=== PATIENT | female | born 1940 | race Caucasian/White ===

== ENCOUNTER 2025-06-27 07:34 | Inpatient (IN) ==
--- NOTE | 2025-06-27 07:46 | Emergency Department Note ---
Impression & Plan Acute cholecystitis, Lactic acidosis, Symptomatic cholelithiasis ED Provider Note NAME: LORENA JENSEN AGE: 85 SEX: F : 1940 ARRIVES VIA: Walk-In INFORMANT: Patient, daughter ED PROVIDER(S): Tobi Jimenez DO CHIEF COMPLAINT: abdominal pain HPI: This is am 85-year-old female with the PMHx of allergies and recent acute cholecystitis and choledocholithiasis presenting to [facility] for further evaluation of abdominal pain. Patient is accompanied by her daughter who provide additional history. The patient is reporting worsening abdominal pain overnight. She has had significant nausea and multiple episodes of emesis. Decreased p.o. intake secondary to her symptoms. Patient is reporting right upper quadrant and epigastric pain. She states this has been an ongoing issue. She originally presented a few weeks ago as she felt she was having a heart attack and was found to have acute cholecystitis. Patient was eventually transferred to [facility] for further evaluation by GI. She did have an ERCP with biliary and pancreatic stenting placed. She did have gallstones removed from the common bile duct. Patient states she is working with general surgery as an outpatient for cholecystectomy but her symptoms continue to worsen. They deny fever or chills. No cough or congestion. Denies chest pain or palpitations. No shortness of breath. No urinary complaints. No recent changes in bowel movements. Patient denies recent changes in medications or OTC supplements. Patient offers no other complaints, today. ADDITIONAL HISTORY OBTAINED: Per HPI Chronic Medical/Social Conditions Affecting Care: Per HPI PAST MEDICAL HISTORY: See Below PAST SURGICAL HISTORY: See Below FAMILY HISTORY: See Below SOCIAL HISTORY: See Below HOME MEDICATIONS: See Below ALLERGIES: See Below VITALS: See Below PHYSICAL EXAMINATION: GENERAL: Sitting up in bed, alert, well appearing, well nourished, no distress, non-toxic EYE EXAM: normal conjunctiva. OROPHARYNX: no exudate, no erythema, lips, buccal mucosa, and tongue normal and mucous membranes are moist NECK: supple, no nuchal rigidity, no adenopathy, non-tender LUNGS: Clear to auscultation. Normal chest wall mechanics HEART: no murmurs, regular rate, regular rhythm ABDOMEN: abdomen soft, RUQ/epigastric TTP, no masses, no rebound or guarding. BACK: Back is symmetrical on inspection and there is no deformity, no midline tenderness, no CVA tenderness. SKIN: no rashes and no bruising UPPER EXTREMITIES: upper extremities are grossly normal. LOWER EXTREMITIES: No pitting edema. NEURO EXAM: Normal sensorium, GCS 15, normal speech, no gross weakness of arms, no gross weakness of legs. MEDICAL DECISION MAKING: Differential diagnoses includes but not limited to symptomatic cholelithiasis, acute cholecystitis, choledocholithiasis, electrolyte derangements, dehydration In summary, this is a 85 year old female who presented with abdominal pain accompanied by nausea and vomiting. Differential as above. Nursing notes and pertinent past medical records reviewed. Vital signs reviewed and the patient is afebrile and hemodynamically stable. History and presentation revealed recent acute cholelithiasis complicated by cholecystitis and choledocholithiasis. External records from [facility] were obtained by [facility]. I reviewed these records including recent ERCP. Patient was found to have choledocholithiasis. Patient had biliary sphincterotomy and balloon extraction of the stone. The patient had multiple stents placed including 1 pancreatic stent and 2 biliary stents. General surgery was consulted for elective cholecystectomy. The patient did see Dr. Ac yesterday. Dr. Ac recommended elective cholecystectomy and schedule was to be made shortly. Lab work from 06/12 was reviewed showing a transaminitis present with elevated total bilirubin at 3.1. Physical examination revealed abdominal tenderness to palpation but no evidence of peritonitis. No evidence of jaundice. As a result of my initial evaluation, we will plan for repeat labs and right upper quadrant ultrasound today. Plan to discuss with general surgery as her symptoms have continued to worsen and there are concerns for acute cholecystitis. Diagnostics interpreted by me include EKG and cardiac monitoring as listed below: -Cardiac Monitoring: An order was placed for continuous cardiac monitoring. The monitor shows a rate of 40-70s with regular rhythm. -ECG: Sinus bradycardia at [address] segment changes to suggest STEMI. There is artifact present on this rhythm strip. Intervals otherwise within normal limits. Patient completed laboratory studies and imaging. Results independently interpreted by me are no significant leukocytosis or anemia. LFTs are normal. No significant electrolyte derangements. Does have an elevated lactate in the setting of decreased p.o. intake and significant vomiting. Patient was provided with medications as well as IV fluid resuscitation. right upper quadrant ultrasound was suggestive of symptomatic cholelithiasis with some evidence of cholecystitis but no Looney sign. General surgery was consulted and they recommended elective cholecystectomy tomorrow. They recommended admission to the medicine team. I discussed with the medicine team and the patient was subsequently admitted. I did give the patient multiple doses of pain medications as she required further dosing on reevaluations. Ultimately, the decision was made to admit the patient for Symptomatic cholelithiasis with concerns for acute cholecystitis. I discussed the case with the hospitalist service via telephone/TigerText and they are agreeable to admit the patient to their services. Based on the above, including the patient's age, coexisting illnesses, labs, imaging, and exam findings the decision to treat as an inpatient. I discussed the patient with the hospitalist team who recommended admission to their services. They received the medications, treatments, interventions indicated above and their condition remained stable. I discussed my findings with the patient and their family and they understand and agree with the treatment plan. All patient / family questions were answered to their satisfaction. Consults/Care Managements Discussions: Per MDM ER treatment provided: See above Procedures: none Critical Care: None The chart was completed utilizing RunAlong Speech voice recognition software. Grammatical errors, random word insertions, pronoun errors, and incomplete sentences are an occasional consequence of this system due to software limitations, ambient noise, and hardware issues. Any formal questions or concerns about the content, text, or information contained within the body of this dictation should be directly addressed to the physician for clarification. Past Med/Surg History Problem List (Updated 06/28/25 @ 11:33 by Tobi Jimenez DO) Symptomatic cholelithiasis (Acute) Lactic acidosis (Acute) Acute cholecystitis (Acute) Medical History Choledocholithiasis Celiac disease Surgical History Hx of tonsillectomy Family History (Updated 06/27/25 @ 14:35 by Kim Mcduffie PA-C) Other Celiac disease Social History (Updated 06/27/25 @ 14:35 by Kim Mcduffie PA-C) Smoking Status: Never smoker Second Hand Exposure: No; Do You Dip or Chew Tobacco: No; Hx Alcohol Use: No Hx Substance Use: No Preferred Language: Hungarian Communication Ability: Effective Retail Experience Specialist Required: No Beliefs That Will Affect Care: None Current Living Situation: Alone Other Information That Helps Us Care for You: No Feels Safe at Home: Yes Safety Concerns: Feels Safe At This Time Assistive Devices: Cane Allergies Allergies Allergy/AdvReac Type Severity Reaction Status Date / Time gluten Allergy Severe CELIAC Verified 06/10/25 17:45 DISEASE latex Allergy Intermediate RED Verified 06/10/25 17:45 IRRITATION OF SKIN wool Allergy Intermediate ITCHY RED Verified 06/10/25 17:45 SKIN SKIN SENSATIVITY Allergy Unknown DETERGENTS, Uncoded 06/10/25 17:45 SOAPS, COSMETICS, ETC. Home Meds Home Medications Medication Instructions Recorded Confirmed calcium carbonate (Calcium 600) 1,200 mg PO DAILY 06/10/25 06/27/25 ketoconazole 2 % shampoo 1 applic topical DIRECTED 06/10/25 06/27/25 loratadine 10 mg tablet (Claritin) 10 mg PO DAILY 06/10/25 06/27/25 gxuuogfgtdus-tehsgfqo-bzumjp 1 tab PO DAILY 06/10/25 06/27/25 tablet (Multivitamin 50 Plus tablet) peppermint oil 90 mg 90 mg PO BID 06/10/25 06/27/25 capsule,delayed,extended release (IBgard) vit C 250 mg-vit E 90 mg-zinc 40 1 tab PO BID 06/10/25 06/27/25 mg-copper 1 uz-viqfwa-xvnnxr capsule (PreserVision AREDS-2) ondansetron HCl 4 mg tablet 4 mg PO UD PRN n/v 06/27/25 06/27/25 Results & Data (ED) Vital Signs Vital Signs - 24 hr 06/27/25 13:22 Pulse Rate [Apical] 97 H Pulse Rhythm [Apical] Regular Pulse Strength [Apical] Normal Respiratory Rate 19 Respiratory Effort / Characteristics Non-Labored Spontaneous Respiratory Depth Normal Respiratory Pattern Regular Blood Pressure [Right Arm] 126/68 Blood Pressure Mean [Right Arm] 87 Blood Pressure Position [Right Arm] Lying Pulse Oximetry 99 Oxygen Delivery Method Room Air Laboratory Data 06/28/25 07:53 06/28/25 07:53 Lab Results 06/27/25 06/27/25 06/27/25 Range/Units 07:55 08:20 12:15 WBC 10.52 (4.8-10.8) K/ul RBC 4.49 (4.20-5.40) M/uL Hgb 14.0 (12.0-16.0) g/dl Hct 42.5 (37.0-47.0) % MCV 94.7 (80.0-100.0) fL MCH 31.2 (25.0-34.0) pg MCHC 32.9 (32.0-36.0) g/dL RDW Std Deviation 52.9 H (36.4-46.3) fL RDW Coeff of Isai 15.2 H (11.5-14.5) % Plt Count 400 (130-400) K/uL MPV 9.2 L (9.4-12.4) fL Immature Gran % (Auto) 0.4 % Neut % (Auto) 86.8 % Lymph % (Auto) 6.6 % [place] % (Auto) 5.5 % Eos % (Auto) 0.0 % Baso % (Auto) 0.7 % Neut # (Auto) 9.14 H (1.40-6.50) K/uL Lymph # (Auto) 0.69 L (1.20-3.40) K/uL [place] # (Auto) 0.58 (0.11-0.59) K/uL Eos # (Auto) 0.00 (0.00-0.50) K/uL Baso # (Auto) 0.07 (0.00-0.20) K/uL Immature Gran # (Auto) 0.04 (0.01-0.20) K/uL PT 10.8 (9.0-12.0) Seconds INR 1.0 (0.9-1.1) Sodium 136 (136-145) mmol/L Potassium 3.6 (3.5-5.1) mmol/L Chloride 98 (98-107) mmol/L Carbon Dioxide 28 (21-32) mmol/L Anion Gap 10 (3-11) BUN 15 (6-23) mg/dl Creatinine 0.68 (0.6-1.2) mg/dl Est Cr Clr Drug Dosing 41.9 ml/min eGFR 84.24 BUN/Creatinine Ratio 22.1 H (10-20) Glucose 140 H (70-99(Fasting)) mg/dl Lactate 2.9 H* 2.7 H* (0.4-2.0) mmol/L Calcium 9.6 (8.6-10.3) mg/dl Total Bilirubin 1.0 (0.2-1.0) mg/dl Direct Bilirubin TNP 0.4 H AST 21 (13-39) U/L ALT 21 (7-52) U/L Alkaline Phosphatase 98 (34-104) U/L Total Protein 7.9 (6.0-8.3) gm/dl Albumin 4.8 (3.4-5.0) gm/dl Lipase 10 L (11-82) U/L Administered Medications Acetaminophen (Acetaminophen 500 Mg Tab) 1,000 mg PO Q8H SINDY Stop: 07/27/25 17:59 Last Admin: 06/28/25 09:38 Dose: Not Given Documented By: Admin: 06/28/25 02:59 Dose: 1,000 mg Documented By: Admin: 06/27/25 18:27 Dose: 1,000 mg Documented By: LISA Sodium Chloride (Nss) 1,000 mls @ 100 mls/hr IV .Q10H SINDY Stop: 06/30/25 14:44 Last Admin: 06/28/25 09:01 Dose: 100 mls/hr Documented By: Infusion: 06/28/25 08:20 Dose: Infused Documented By: Admin: 06/27/25 15:39 Dose: 60 mls/hr Documented By: TDM Piperacillin Sod/Tazobactam Sod (Zosyn) 4.5 gm in 100 mls @ 25 mls/hr IV Q8H SINDY; Protocol Stop: 07/07/25 19:59 Last Infusion: 06/28/25 07:13 Dose: Infused Documented By: Admin: 06/28/25 03:00 Dose: 25 mls/hr Documented By: Infusion: 06/28/25 00:15 Dose: Infused Documented By: MARTÍN(2) Admin: 06/27/25 19:58 Dose: 25 mls/hr Documented By: MARTÍN Discontinued Medications Fentanyl Citrate (Fentanyl Citrate Pf 100 Mcg/2 Ml Vial) 50 mcg IV NOW ONE Stop: 06/27/25 09:59 Last Admin: 06/27/25 10:02 Dose: 50 mcg Documented By: MPJuan Parenteral Electrolytes (Plasma-Lyte A Ph 7.4) 1,000 mls @ 999 mls/hr IV .Q1H1M ONE Stop: 06/27/25 09:03 Last Infusion: 06/27/25 12:27 Dose: Infused Documented By: Admin: 06/27/25 08:08 Dose: 999 mls/hr Documented By: MIKE Acetaminophen 720 mg/ EMPTY (BAG) 72 mls @ 288 mls/hr IV NOW ONE Stop: 06/27/25 09:59 Last Infusion: 06/27/25 11:18 Dose: Infused Documented By: Admin: 06/27/25 10:52 Dose: 288 mls/hr Documented By: MIKE Piperacillin Sod/Tazobactam Sod (Zosyn) 4.5 gm in 100 mls @ 200 mls/hr IV NOW STA; Protocol Stop: 06/27/25 15:38 Last Infusion: 06/27/25 16:18 Dose: Infused Documented By: Admin: 06/27/25 15:39 Dose: 200 mls/hr Documented By: SHANTELL Sodium Chloride (Nss) 500 mls @ 999 mls/hr IV .Q31M ONE Stop: 06/27/25 18:39 Last Infusion: 06/27/25 19:11 Dose: Infused Documented By: Admin: 06/27/25 18:27 Dose: 999 mls/hr Documented By: LISA Morphine Sulfate (Morphine Sulfate 4 Mg/Ml 1 Ml Carp\Vial) 4 mg IV NOW STA Stop: 06/27/25 08:04 Last Admin: 06/27/25 08:08 Dose: 4 mg Documented By: MIKE Ondansetron HCl (Ondansetron Inj 2 Mg/Ml 2 Ml Vial) 4 mg IV NOW STA Stop: 06/27/25 08:04 Last Admin: 06/27/25 08:08 Dose: 4 mg Documented By: MIEK Discharge Plan Visit Data Chief Complaint: Abdominal Pain Stated Complaint: GALLSTONE? ED Provider: Tobi Jimenez Discharge Problem: Acute cholecystitis, Lactic acidosis, Symptomatic cholelithiasis Patient Disposition: Admitted As Inpatient Condition: Fair Discharge Instructions Interventions: ED Discharge Assessment Last Done: 06/27/25 16:13
[2025-06-27] MEDS: ONDANSETRON INJ 2 MG/ML 2 ML VIAL IV STA (08:08)
[2025-06-27] MEDS: PLASMA-LYTE A 1,000 ML IV ONE (08:08)
[2025-06-27] MEDS: MoRPHine SULFATE 4 MG/ML 1 ML CARP\\VIAL IV STA (08:08)
[2025-06-27 08:16] LABS: Hematocrit (blood only) 42.5 % (37.0-47.0); Hemoglobin 14.0 g/dl (12.0-16.0); Immature Granulocytes # (auto) 0.04 K/uL (0.01-0.20); Immature Granulocytes % (auto) 0.4 %; Mean Corpuscular Hemoglobin 31.2 pg (25.0-34.0); Mean Corpuscular Volume 94.7 fL (80.0-100.0); Platelet Count 400 K/uL (130-400); RDW Standard Deviation 52.9 fL (36.4-46.3); Red Blood Count 4.49 M/uL (4.20-5.40); White Blood Count 10.52 K/ul (4.8-10.8)
[2025-06-27 08:35] LABS: Alanine Aminotransferase 21 U/L (7-52); Albumin Level 4.8 gm/dl (3.4-5.0); Alkaline Phosphatase 98 U/L (34-104); Anion Gap 10 (3-11); Bilirubin,Total 1.0 mg/dl (0.2-1.0); Blood Urea Nitrogen 15 mg/dl (6-23); Calcium 9.6 mg/dl (8.6-10.3); Carbon Dioxide 28 mmol/L (21-32); Chloride 98 mmol/L (98-107); Creatinine Clr Calc Pharmacy 41.9 ml/min; Glucose 140 mg/dl (70-99(Fasting)); Lipase 10 U/L (11-82); Potassium 3.6 mmol/L (3.5-5.1); Sodium 136 mmol/L (136-145); Total Protein 7.9 gm/dl (6.0-8.3)
[2025-06-27 08:50] LABS: INR 1.0 (0.9-1.1); Prothrombin Time 10.8 Seconds (9.0-12.0)
[2025-06-27] MEDS: ACETAMINOPHEN IV ONE (10:52)
--- NOTE | 2025-06-27 11:20 | Ultrasound Report ---
US gallbladder CLINICAL HISTORY: Abdominal pain. Evaluate for acute cholecystitis. COMPARISON STUDY: CT of the abdomen and pelvis and right upper quadrant ultrasound June 10 5. FINDINGS: The liver is sonographically normal. There is no biliary ductal dilatation. The common bile duct measures 5 mm in caliber. The gallbladder is moderately distended. Gallbladder wall thickening is again noted. There are multiple gallstones within the gallbladder. No sonographic Looney sign was elicited. The pancreas is partially obscured. Visualized portions are unremarkable by sonography. The re is no right hydronephrosis. IMPRESSION: 1. Cholelithiasis with gallbladder distention and gallbladder wall thickening. The findings favor chr onic cholecystitis given lack of sonographic Looney sign although acute cholecystitis would be diffic ult to completely exclude. If indicated, a nuclear medicine hepatobiliary scan could be obtained. 2. No biliary ductal dilatation. ACT 112: Negative or not required by law. Electronically signed by: Grupo Cazares M.D. 06/27/2025 11:17 AM
--- NOTE | 2025-06-27 13:40 | History & Physical Report ---
Date of Service June 27, 2025 Assessment & Plan (1) Acute cholecystitis: Plan: This is an 85-year-old female with PMH of celiac disease, recent choledocholithiasis and other medical problems listed below who presents from home with abdominal pain. S/p ERCP on 06/12 for choledocholithiasis, s/p biliary stent x 2, pancreatic stent x 1 at [facility] with plans for outpatient gen surg eval for cholecystectomy Returns to ER today with abd pain, N/V -> Gallbladder ultrasound findings consistent with cholelithiasis with GB wall thickening No leukocytosis, tbili and liver enzymes unremarkable Gen surg evaluated patient - planning on lap marty tomorrow morning Full liquids today, NPO @ midnight Maintenance fluids, IV Zosyn, pain control (2) Lactic acidosis: Plan: Lactate 2.9 in setting of acute process above Non-toxic appearance, does not meet sepsis criteria Trend till normalized, continue IV fluids DVT Ppx: SCDs Code status: DNR/DNI PCP: Neyda Dispo: Admitted to med/surg Patient seen in collaboration with Dr. Collins. Please see addendum. I spent a total of 60 minutes coordinating, documenting, and providing care for this patient excluding time spent in the performance of separately billed services or time spent by another provider/QHP. History of Present Illness Chief Complaint: abd pain Primary Care Provider: Dilcia Faye, DO This is an 85-year-old female with PMH of celiac disease, recent choledocholithiasis and other medical problems listed below who presents from home with abdominal pain. Recently presented to [facility] with findings of choledocholithiasis and was transferred to [facility] for ERCP. Underwent ERCP on 06/12/2025 with biliary sphincterotomy and balloon extraction, 1 plastic pancreatic stent and 2 plastic biliary stents placed by Dr. Bay. Had scheduled follow-up with general surgery for evaluation of cholecystectomy in outpatient setting. Was feeling okay until last night when she had a cup of brown rice for dinner and after which she developed severe pain across her abdomen with radiation up to chest. Developed nausea, vomiting x 1 and diaphoresis. Took Tylenol but it did not alleviate pain. No diarrhea; chronic diarrhea at baseline but last bowel movement yesterday. No F/C, lightheadedness, palpitations, SOB, dysuria. Lives alone and ambulates independently. No h/o abdominal surgeries. Allergies Allergy/AdvReac Type Severity Reaction Status Date / Time gluten Allergy Severe CELIAC Verified 06/10/25 17:45 DISEASE latex Allergy Intermediate RED Verified 06/10/25 17:45 IRRITATION OF SKIN wool Allergy Intermediate ITCHY RED Verified 06/10/25 17:45 SKIN SKIN SENSATIVITY Allergy Unknown DETERGENTS, Uncoded 06/10/25 17:45 SOAPS, COSMETICS, ETC. Home Medications Medication Instructions Recorded Confirmed Type calcium carbonate (Calcium 600) 1,200 mg PO DAILY 06/10/25 06/27/25 History ketoconazole 2 % shampoo 1 applic topical DIRECTED 06/10/25 06/27/25 History loratadine 10 mg tablet (Claritin) 10 mg PO DAILY 06/10/25 06/27/25 History kjoweexrlovr-poyhjzsm-cszzql 1 tab PO DAILY 06/10/25 06/27/25 History tablet (Multivitamin 50 Plus tablet) peppermint oil 90 mg 90 mg PO BID 06/10/25 06/27/25 History capsule,delayed,extended release (IBgard) vit C 250 mg-vit E 90 mg-zinc 40 1 tab PO BID 06/10/25 06/27/25 History mg-copper 1 sl-unwlbn-drndhd capsule (PreserVision AREDS-2) ondansetron HCl 4 mg tablet 4 mg PO UD PRN n/v 06/27/25 06/27/25 History Past Med/Surg History Problem List (Updated 06/27/25 @ 14:44 by Kim Mcduffie PA-C) Lactic acidosis Acute cholecystitis Medical History Choledocholithiasis Celiac disease Surgical History Hx of tonsillectomy Family History (Updated 06/27/25 @ 14:35 by Kim Mcduffie PA-C) Other Celiac disease Social History (Updated 06/27/25 @ 14:35 by Kim Mcduffie PA-C) Smoking Status: Never smoker Second Hand Exposure: No; Do You Dip or Chew Tobacco: No; Hx Alcohol Use: No Hx Substance Use: No Preferred Language: Czech Communication Ability: Effective Commodity Lead Required: No Beliefs That Will Affect Care: None Current Living Situation: Alone Other Information That Helps Us Care for You: No Feels Safe at Home: Yes Safety Concerns: Feels Safe At This Time Assistive Devices: Cane and Glasses Review of Systems Review of Systems: At least ten systems reviewed and negative except as noted in the HPI. Physical Exam Physical Exam: Please see Dr. Collins's addendum for physical exam. Results & Data Results & Data Vital Signs (Past 12 Hours) Vital Signs Temp Pulse Pulse Resp BP BP Pulse Ox 06/27/25 13:22 97 H 19 126/68 99 06/27/25 11:00 79 15 149/75 H 93 06/27/25 09:35 48 L 17 167/93 H 96 06/27/25 08:43 45 L 06/27/25 07:55 47 L 19 98 06/27/25 07:55 49 L 15 138/72 98 06/27/25 07:38 36.2 C L 78 18 161/92 H 97 O2 Del Method 06/27/25 13:22 Room Air 06/27/25 11:00 Room Air 06/27/25 09:35 Room Air 06/27/25 08:43 06/27/25 07:55 Room Air 06/27/25 07:55 Room Air 06/27/25 07:38 Room Air Laboratory Results Short CBC 06/27/25 Range/Units 07:55 WBC 10.52 (4.8-10.8) K/ul Hgb 14.0 (12.0-16.0) g/dl Hct 42.5 (37.0-47.0) % Plt Count 400 (130-400) K/uL BMP 06/27/25 07:55 Sodium 136 Potassium 3.6 Chloride 98 Carbon Dioxide 28 BUN 15 Creatinine 0.68 Glucose 140 H Calcium 9.6 Liver Function 06/27/25 06/27/25 Range/Units 07:55 12:15 Total Bilirubin 1.0 (0.2-1.0) mg/dl Direct Bilirubin TNP 0.4 H AST 21 (13-39) U/L ALT 21 (7-52) U/L Alkaline Phosphatase 98 (34-104) U/L Albumin 4.8 (3.4-5.0) gm/dl Diagnostic Findings Gallbladder Ultrasound 06/27/25 07:47 US gallbladder CLINICAL HISTORY: Abdominal pain. Evaluate for acute cholecystitis. COMPARISON STUDY: CT of the abdomen and pelvis and right upper quadrant ultrasound June 10, 2025. FINDINGS: The liver is sonographically normal. There is no biliary ductal dilatation. The common bile duct measures 5 mm in caliber. The gallbladder is moderately distended. Gallbladder wall thickening is again noted. There are multiple gallstones within the gallbladder. No sonographic Looney sign was elicited. The pancreas is partially obscured. Visualized portions are unremarkable by sonography. There is no right hydronephrosis. IMPRESSION: 1. Cholelithiasis with gallbladder distention and gallbladder wall thickening. The findings favor chronic cholecystitis given lack of sonographic Looney sign although acute cholecystitis would be difficult to completely exclude. If indicated, a nuclear medicine hepatobiliary scan could be obtained. 2. No biliary ductal dilatation. ACT 112: Negative or not required by law. Electronically signed by: Grupo Cazares M.D. 06/27/2025 11:17 AM Supervising Physician Co-Signing Physician Notes Patient seen and examined Recently hospitalized at [facility] and had ERCP with biliary stents placed with plan for outpatient surgery cholecystectomy. Presents with worsened abd pain, nausea and vomiting since dinner last night On exam, General: Elderly woman in no distress Eyes: PERRL, conjunctivae normal, not pale, anicteric sclerae, EOM intact bilaterally ENMT: External ear and nose normal, oropharynx normal Respiratory: Normal respiratory effort, no respiratory distress, lungs clear to auscultation Cardiovascular: RRR S1 S2 Gastrointestinal (Abdomen): Abdomen is not distended, soft, non-tender to palpation, normal bowel sounds Musculoskeletal: No pedal edema Neurologic: Alert and oriented x 3, No focal weakness, sensation grossly intact Psychiatric: Euthymic affect Lab notable for lactate of 2.9 GB USS noted cholelithiasis with GB wall thickening Continue IVF Full liquid diet Pain control NPO PMN for lap cholecystectomy by surgeon tomorrow Other plans as detailed by Kim Garner PA-C
--- NOTE | 2025-06-27 13:46 | Surgery Consultation ---
<Statement entered by Jef Nash MD - 06/27/25 23:20> I independently saw the patient and agree with the assessment and plan of care. Patient was reassessed after abdominal x-ray and x-ray reports feeling much better and denies any significant pain. Area of inguinal hernia also feels softer and is not tender on exam now. Will observe the patient closely and if continues to improve, will consider likely elective repair. If patient worsens, may need urgent emergency repair. Date of Consultation June 27, 2025 Assessment & Plan (1) Acute cholecystitis: This is an 85y F who presents to the [facility] ED on 06/27/25 with complaints of abdominal pain. She has history of choledocholithiasis s/p ERCP with stents at [facility] earlier this month. She was in the midst of getting scheduled for elective lap marty as an outpatient unfortunately she has been having low grade persistent symptoms since the ERCP and a severe gallbladder attack that occurred last night into this AM. She presented to our ER for further evaluation. Today in the ER she underwent a repeat RUQ US that showed cholelithiasis with gallbladder distention and gallbladder wall thickening. The findings favor chronic cholecystitis. There is no biliary ductal dilation. In the ER blood work shows WBC 10, Hbg 14, Tb 1, AST 21, ALT 21, Alkp 98. Her vital signs are stable. On exam patients abdomen is soft with lower abdominal distention and mild tenderness to palpation in the right mid/upper abdominal regions. Agree at this point patient warrants gallbladder removal. We will have her get admitted to the hospital for symptom control, start IV abx, and plan on surgery tomorrow with Dr. Nash for cholecystectomy. Keep NPO at midnight. History of Present Illness History of Present Illness This is an 85y F who presents to the [facility] ED on 06/27/25 with complaints of abdominal pain. Of significance she presented to our ER on 06/10 with similar symptoms and was diagnosed with acute cholecystitis and choledocholithiasis. Since we did not have GI coverage for ERCP she was transferred to [facility] where she underwent ERCP with removal of choledocholithiasis and placement of CBD and pancreatic duct stents. Patient was discharged to home the following day with plans for elective outpatient cholecystectomy. The patient states she was getting by at home but taking intermittent tylenol and zofran for her symptoms. She met with [facility] surgeon yesterday in the office with plans to schedule elective procedure. Unfortunately the patient developed severe abdominal pain around 7:15 yesterday evening, associated with nausea/vomiting that was not going away. She called [facility] outpatient this AM and was asked to come into the ER for evaluation. The patient rates her pain a 6-7/10 in severity. Today in the ER she underwent a repeat RUQ US that showed c with gallbladder distention and gallbladder wall thickening. The findings favor chronic cholecystitis. There is no biliary ductal dilation. The patient reports she last ate some brown rice around 7pm and the pain started right after eating. This time tylenol did not help her symptoms. Patient denies any fevers/chills. She reports some + SOB. + constipation she used a suppository for recently. She denies any past surgical history on the abdomen. Allergies Allergy/AdvReac Type Severity Reaction Status Date / Time gluten Allergy Severe CELIAC Verified 06/10/25 17:45 DISEASE latex Allergy Intermediate RED Verified 06/10/25 17:45 IRRITATION OF SKIN wool Allergy Intermediate ITCHY RED Verified 06/10/25 17:45 SKIN SKIN SENSATIVITY Allergy Unknown DETERGENTS, Uncoded 06/10/25 17:45 SOAPS, COSMETICS, ETC. Home Medications Medication Instructions Recorded Confirmed Type calcium carbonate (Calcium 600) 1,200 mg PO DAILY 06/10/25 06/27/25 History ketoconazole 2 % shampoo 1 applic topical DIRECTED 06/10/25 06/27/25 History loratadine 10 mg tablet (Claritin) 10 mg PO DAILY 06/10/25 06/27/25 History qztnuqvzphvk-dtqnjvws-djpaay 1 tab PO DAILY 06/10/25 06/27/25 History tablet (Multivitamin 50 Plus tablet) peppermint oil 90 mg 90 mg PO BID 06/10/25 06/27/25 History capsule,delayed,extended release (IBgard) vit C 250 mg-vit E 90 mg-zinc 40 1 tab PO BID 06/10/25 06/27/25 History mg-copper 1 gt-nyiniq-vpdrty capsule (PreserVision AREDS-2) ondansetron HCl 4 mg tablet 4 mg PO UD PRN n/v 06/27/25 06/27/25 History Patient History Social History Smoking Status: Never smoker Preferred Language: [place] Feels Safe at Home: Yes Review of Systems Constitutional: no fever and no chills Respiratory: + dyspnea Gastrointestinal: + abdominal pain, + bloating, + nausea, + vomiting and + constipation Musculoskeletal: no back pain Physical Exam Physical Exam: awake/alert, no distress Constitutional: well developed and well nourished; no acute distress Respiratory: normal respiratory effort Gastrointestinal (Abdomen): Inspection/Auscultation: + abdomen distended (lower abdominal distention) Percussion/Palpation: + abdomen tender (some mild discomfort to deep palpation in the mid to upper right sided abd) and abdomen soft Results & Data Vital Signs (Past 12 Hours) Vital Signs Temp Pulse Pulse Resp BP BP Pulse Ox 06/27/25 13:22 97 H 19 126/68 99 06/27/25 11:00 79 15 149/75 H 93 06/27/25 09:35 48 L 17 167/93 H 96 06/27/25 08:43 45 L 06/27/25 07:55 47 L 19 98 06/27/25 07:55 49 L 15 138/72 98 06/27/25 07:38 97.2 F L 78 18 161/92 H 97 O2 Del Method 06/27/25 13:22 Room Air 06/27/25 11:00 Room Air 06/27/25 09:35 Room Air 06/27/25 08:43 06/27/25 07:55 Room Air 06/27/25 07:55 Room Air 06/27/25 07:38 Room Air Diagnostic Findings US gallbladder CLINICAL HISTORY: Abdominal pain. Evaluate for acute cholecystitis. COMPARISON STUDY: CT of the abdomen and pelvis and right upper quadrant ultrasound June 10, 2025. FINDINGS: The liver is sonographically normal. There is no biliary ductal dilatation. The common bile duct measures 5 mm in caliber. The gallbladder is moderately distended. Gallbladder wall thickening is again noted. There are multiple gallstones within the gallbladder. No sonographic Looney sign was elicited. The pancreas is partially obscured. Visualized portions are unremarkable by sonography. There is no right hydronephrosis. IMPRESSION: 1. Cholelithiasis with gallbladder distention and gallbladder wall thickening. The findings favor chronic cholecystitis given lack of sonographic Looney sign although acute cholecystitis would be difficult to completely exclude. If indicated, a nuclear medicine hepatobiliary scan could be obtained. 2. No biliary ductal dilatation. ACT 112: Negative or not required by law. Electronically signed by: Grupo Cazares M.D. 06/27/2025 11:17 AM PG Care Time/CCT Total # of Minutes Spent Total Time Spent with Patient: Total time spent is greater than 50% in coordination of care (as documented) at patient's floor/unit and/or counseling patient: Coding Level of Care Code 16924 INT INP/OBS CARE 1/40MIN Diagnoses Acute cholecystitis K81.0
[2025-06-27] MEDS ORDERED: MoRPHine SULFATE 2 MG/ML CARP IV PRN (14:21)
[2025-06-27] MEDS ORDERED: ACETAMINOPHEN 500 MG TAB PO PRN (15:36)
[2025-06-27] MEDS: SODIUM CHLORIDE 0.9% 1,000 ML IV SCH (15:39)
[2025-06-27] MEDS: 4.5GM X1 IV STA (15:39)
[2025-06-27] MEDS ORDERED: ONDANSETRON INJ 2 MG/ML 2 ML VIAL IV PRN (16:59)
[2025-06-27 17:59] LABS: Appearance Urine Clear (Clear); Bacteria Urine Automated None Seen (None Seen); Cast Urine Automated 0-2 /lpf (0-2); Epithelial Cell Urine Auto 0-2 /hpf (0-2); Glucose Urine UA Negative (Negative); WBC Urine Automated 0-5 /hpf (0-5)
--- NOTE | 2025-06-27 18:19 | Electrocardiogram Report ---
Test Reason : Blood Pressure : */* mmHG Vent. Rate : 57 BPM Atrial Rate : 57 BPM P-R Int : 166 ms QRS Dur : 94 ms QT Int : 446 ms P-R-T Axes : 69 -63 85 degrees QTcB Int : 434 ms Sinus bradycardia Possible Left atrial enlargement Incomplete right bundle branch block Left anterior fascicular block Nonspecific T wave abnormality Abnormal ECG When compared with ECG of 10-Jun-2025 15:36, Incomplete right bundle branch block is now Present Confirmed by Blas Chavez ([id number]) on 06/27/2025 6:19:30 PM Referred By: REFERRED SELF Confirmed By: Blas Chavez
[2025-06-27] MEDS: SODIUM CHLORIDE 0.9% 500 ML IV ONE (18:27)
[2025-06-27] MEDS: ACETAMINOPHEN 500 MG TAB PO SCH (18:27)
[2025-06-27] MEDS: PIPERACILLIN/TAZOBACTAM 4.5 GM/100 ML BAG IV SCH (19:58)
[2025-06-28 08:31] LABS: Hematocrit (blood only) 34.1 % (37.0-47.0); Hemoglobin 11.2 g/dl (12.0-16.0); Mean Corpuscular Hemoglobin 30.9 pg (25.0-34.0); Mean Corpuscular Volume 93.9 fL (80.0-100.0); Platelet Count 246 K/uL (130-400); RDW Standard Deviation 53.6 fL (36.4-46.3); Red Blood Count 3.63 M/uL (4.20-5.40); White Blood Count 14.20 K/ul (4.8-10.8)
[2025-06-28 09:00] LABS: Alanine Aminotransferase 31.0 U/L (7-52); Albumin Globulin Ratio 1.5 (0.9-2); Albumin Level 3.1 gm/dl (3.4-5.0); Alkaline Phosphatase 71.0 U/L (34-104); Anion Gap 6.0 (3-11); Bilirubin,Total 1.2 mg/dl (0.2-1.0); Blood Urea Nitrogen 18.0 mg/dl (6-23); Calcium 7.9 mg/dl (8.6-10.3); Carbon Dioxide 28.0 mmol/L (21-32); Chloride 103.0 mmol/L (98-107); Creatinine Clr Calc Pharmacy 36.5 ml/min; Globulin 2.1 gm/dl (2.5-4.0); Glucose 90.0 mg/dl (70-99(Fasting)); Potassium 3.4 mmol/L (3.5-5.1); Sodium 137.0 mmol/L (136-145); Total Protein 5.2 gm/dl (6.0-8.3)
--- NOTE | 2025-06-28 11:10 | Surgery Progress Note ---
Date of Service June 28, 2025 Assessment & Plan (1) Acute cholecystitis: (2) Choledocholithiasis: Plan This is a very pleasant 85-year-old female with a history of choledocholithiasis, status post ERCP and sphincterotomy and stent placement recently who came back in with abdominal pain and was found to have possible cholecystitis but her intrahepatic ducts were dilated on CAT scan. Her bilirubin has remained slightly elevated, given this, will obtain MRCP to ensure that the stent is in good positioning with good output and no blockage and that there are no retained stones prior to cholecystectomy during this admission. If there are concerning findings on MRCP, patient may need further ductal manipulation prior to any type of surgical intervention. Admission and Anticipated Discharge Date Admission Date: June 27, 2025 Subjective Patient denies any abdominal pain this morning. Appears comfortable Review of Systems Review of Systems: All systems reviewed & are unremarkable except as noted in HPI & below Physical Exam Constitutional: WD/WN, vitals as above Eyes: PERRL, conjunctivae normal, anicteric sclerae Cardiovascular: Rate/Rhythm: regular rate Gastrointestinal (Abdomen): Abdomen soft and nondistended Results & Data Vital Signs (Past 12 Hours) Vital Signs Temp Pulse Resp BP Pulse Ox O2 Del Method 06/28/25 07:35 37.0 C 74 16 93/52 L 95 Room Air Laboratory Results Labs reviewed, notable for increased white blood cell count as well as slight increase in bilirubin PG Care Time/CCT Total # of Minutes Spent Total Time Spent with Patient: Total time spent is greater than 50% in coordination of care (as documented) at patient's floor/unit and/or counseling patient: Coding Level of Care Code 10184 SUB INP/OBS CARE 2/35MIN Diagnoses Acute cholecystitis K81.0 Choledocholithiasis K80.50
[2025-06-28] MEDS: POTASSIUM CHLORIDE 20 MEQ/15 ML UDC PO ONE (14:12)
--- NOTE | 2025-06-28 14:58 | Magnetic Resonance Report ---
MR MRCP HISTORY: 85 years-old Female elevated bilirubin, history of ERCP and stent COMPARISON: CT abdomen and pelvis 06/10/2025 TECHNIQUE: MRCP was obtained without IV contrast FINDINGS: Levoscoliosis of the thoracolumbar junction. Trace pleural effusions with mild bibasilar atelectasis. Cardiomegaly with small pericardial effusion. Unremarkable spleen and visualized adrenal glands. Bilateral perinephric stranding without hydronephr osis. Unremarkable aorta. Aortic lymph nodes measure up to 10 mm. No definite bowel stroke shown smal l bowel wall thickening. Small volume of ascites. Liver is within normal limits. Distended gallbladder measures up to approximately 17 cm and demonstrates wall thickening with perich olecystic fluid and numerous intraluminal gallstones including a 2.2 cm stone within the gallbladder neck. The common bile duct measures 5 mm transversely. Previously noted choledocholithiasis not defin itively seen on this study. 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 No pancr eatic ductal dilation identified. IMPRESSION: 1. Cholelithiasis with findings suggestive of cholecystitis redemonstrated. 2. The study is motion degraded and the previously noted choledocholithiasis are not definitively see n on this motion degraded study. No biliary ductal dilation. 3. Small pleural and pericardial effusions with body wall edema and ascites. 4. 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 ACT 112: Negative or not required by law. The above report was generated using voice recognition software. It may contain grammatical, syntax o r spelling errors. Electronically signed by: Mark Lizarraga M.D. 06/28/2025 2:57 PM
--- NOTE | 2025-06-28 15:11 | Hospitalist Progress Note ---
Date of Service June 28, 2025 Assessment & Plan (1) Acute cholecystitis: Plan: Patient is an 85-year-old female with PMH of celiac disease, recent choledocholithiasis and other medical problems listed below who presents from home with abdominal pain. 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 The study is motion degraded and the previously noted choledocholithiasis are not definitively seen on this motion degraded study. No biliary ductal dilation. Small pleural and pericardial effusions with body wall edema and ascites. 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 --Gall Bladder USD:Cholelithiasis with gallbladder distention and gallbladder wall thickening. The findings favor chronic cholecystitis given lack of sonographic Looney sign although acute cholecystitis would be difficult to completely exclude. If indicated, a nuclear medicine hepatobiliary scan could be obtained. No biliary ductal dilatation. --S/p ERCP on 06/12 for choledocholithiasis, s/p biliary stent x 2, pancreatic stent x 1 at [facility] with plans for outpatient gen surg eval for cholecystectomy --Continue gentle IV fluids, Zosyn Appreciate surgery input Pain control as needed Clear liquid diet today N.p.o. after midnight for surgery tomorrow Hypokalemia Replace and monitor (2) Lactic acidosis: Plan: Lactic acidosis resolved with IV fluids DVT Px: SCDs for now Code status: DNR/DNI Admission and Anticipated Discharge Date Admission Date: June 27, 2025 Subjective Patient is seen and examined at bedside Denies any chest pain, dyspnea, nausea, vomiting, abdominal pain Discussed with surgery today Offers no specific complaints today Review of Systems Review of Systems: All systems reviewed & are unremarkable except as noted in Subjective Physical Exam Physical Exam: Physical Exam: Vitals signs as noted above General Appearance: Thin, frail, elderly, no apparent distress Head: normocephalic, Atraumatic Eyes: normal inspection, EOMI Neck: supple, Trachea midline Respiratory/Chest: Normal breath sounds, CTA, No accessory muscle use Cardiovascular: S1, S2, No murmur Abdomen/GI:Soft, Non tender, Bowel sounds present Extremities/Musculoskeletal:normal inspection, no edema Neurologic/Psych:AAOX3, grossly no focal neurological deficits Skin: normal color, warm Results & Data Results & Data Vital Signs (Past 12 Hours) Vital Signs Temp Pulse Resp BP Pulse Ox O2 Del Method 06/28/25 07:35 37.0 C 74 16 93/52 L 95 Room Air Laboratory Results Short CBC 06/28/25 Range/Units 07:53 WBC 14.20 H (4.8-10.8) K/ul Hgb 11.2 L (12.0-16.0) g/dl Hct 34.1 L (37.0-47.0) % Plt Count 246 (130-400) K/uL BMP 06/28/25 07:53 Sodium 137 Potassium 3.4 L Chloride 103 Carbon Dioxide 28 BUN 18 Creatinine 0.78 Glucose 90 Calcium 7.9 L Liver Function 06/28/25 Range/Units 07:53 Total Bilirubin 1.2 H (0.2-1.0) mg/dl Direct Bilirubin 0.3 H (0-0.2) mg/dl AST 29 (13-39) U/L ALT 31 (7-52) U/L Alkaline Phosphatase 71 (34-104) U/L Albumin 3.1 L (3.4-5.0) gm/dl Urine 06/27/25 Range/Units Unknown Urine Color Yellow Urine Appearance Clear (Clear) Urine pH 6.5 (4.5-7.5) Ur Specific [place] 1.025 (1.000-1.030) Urine Protein 1+ H (Negative) Urine Glucose (UA) Negative (Negative)
[2025-06-28] MEDS: SODIUM CHLORIDE 0.9% 500 ML IV ONE (16:54)
[2025-06-29] MEDS ORDERED: Nursing to Pharmacy Communication SCH (01:30)
[2025-06-29 08:44] LABS: Hematocrit (blood only) 34.9 % (37.0-47.0); Hemoglobin 11.8 g/dl (12.0-16.0); Mean Corpuscular Hemoglobin 31.7 pg (25.0-34.0); Mean Corpuscular Volume 93.8 fL (80.0-100.0); Platelet Count 189 K/uL (130-400); RDW Standard Deviation 54.0 fL (36.4-46.3); Red Blood Count 3.72 M/uL (4.20-5.40); White Blood Count 13.70 K/ul (4.8-10.8)
[2025-06-29 09:02] LABS: Alanine Aminotransferase 24.0 U/L (7-52); Albumin Globulin Ratio 1.3 (0.9-2); Albumin Level 2.8 gm/dl (3.4-5.0); Alkaline Phosphatase 85.0 U/L (34-104); Anion Gap 6.0 (3-11); Bilirubin,Total 0.9 mg/dl (0.2-1.0); Blood Urea Nitrogen 16.0 mg/dl (6-23); Calcium 7.9 mg/dl (8.6-10.3); Carbon Dioxide 24.0 mmol/L (21-32); Chloride 108.0 mmol/L (98-107); Creatinine Clr Calc Pharmacy 38.0 ml/min; Globulin 2.2 gm/dl (2.5-4.0); Glucose 84.0 mg/dl (70-99(Fasting)); Magnesium 1.9 mg/dl (1.7-2.4); Potassium 3.4 mmol/L (3.5-5.1); Sodium 138.0 mmol/L (136-145); Total Protein 5.0 gm/dl (6.0-8.3)
--- NOTE | 2025-06-29 09:24 | Hospitalist Progress Note ---
Date of Service June 29, 2025 Assessment & Plan (1) Acute cholecystitis: Plan: Patient is an 85-year-old female with PMH of celiac disease, recent choledocholithiasis and other medical problems listed below who presents from home with abdominal pain. 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 The study is motion degraded and the previously noted choledocholithiasis are not definitively seen on this motion degraded study. No biliary ductal dilation. Small pleural and pericardial effusions with body wall edema and ascites. 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 --Gall Bladder USD:Cholelithiasis with gallbladder distention and gallbladder wall thickening. The findings favor chronic cholecystitis given lack of sonographic Looney sign although acute cholecystitis would be difficult to completely exclude. If indicated, a nuclear medicine hepatobiliary scan could be obtained. No biliary ductal dilatation. --S/p ERCP on 06/12 for choledocholithiasis, s/p biliary stent x 2, pancreatic stent x 1 at [facility] with plans for outpatient gen surg eval for cholecystectomy --S/P laparoscopic cholecystectomy on 06/29/[address]Asna Nash --Continue gentle IV fluids, Zosyn Appreciate surgery input Pain control as needed Clear liquid diet today Monitor for postop anemia Hypokalemia Replace and monitor (2) Lactic acidosis: Plan: Lactic acidosis resolved with IV fluids DVT Px: SCDs for now Code status: DNR/DNI Admission and Anticipated Discharge Date Admission Date: June 27, 2025 Subjective Patient is seen and examined at bedside States having some abdominal discomfort with activity but otherwise no other complaints Plan for cholecystectomy Discussed with surgery today Review of Systems Review of Systems: All systems reviewed & are unremarkable except as noted in Subjective Physical Exam Physical Exam: Physical Exam: Vitals signs as noted above General Appearance: Thin, frail, elderly, no apparent distress Head: normocephalic, Atraumatic Eyes: normal inspection, EOMI Neck: supple, Trachea midline Respiratory/Chest: Normal breath sounds, CTA, No accessory muscle use Cardiovascular: S1, S2, No murmur Abdomen/GI:Soft, Non tender, Bowel sounds present Extremities/Musculoskeletal:normal inspection, no edema Neurologic/Psych:AAOX3, grossly no focal neurological deficits Skin: normal color, warm Results & Data Results & Data Vital Signs (Past 12 Hours) Vital Signs Temp Pulse Resp BP Pulse Ox O2 Del Method 06/29/25 08:41 Room Air 06/29/25 08:32 36.5 C 60 18 132/61 94 Room Air 06/28/25 22:06 36.6 C 74 16 94/60 L 94 Room Air Laboratory Results Short CBC 06/29/25 Range/Units 08:21 WBC 13.70 H (4.8-10.8) K/ul Hgb 11.8 L (12.0-16.0) g/dl Hct 34.9 L (37.0-47.0) % Plt Count 189 (130-400) K/uL BMP 06/29/25 08:21 Sodium 138 Potassium 3.4 L Chloride 108 H Carbon Dioxide 24 BUN 16 Creatinine 0.75 Glucose 84 Calcium 7.9 L Liver Function 06/29/25 Range/Units 08:21 Total Bilirubin 0.9 (0.2-1.0) mg/dl AST 24 (13-39) U/L ALT 24 (7-52) U/L Alkaline Phosphatase 85 (34-104) U/L Albumin 2.8 L (3.4-5.0) gm/dl
[2025-06-29] MEDS: POTASSIUM CHLORIDE / WTR 10 MEQ/100 ML PLCT IV SCH (09:34)
[2025-06-29] MEDS ORDERED: PROPOFOL IV EMULSION 10 MG/ML 20 ML VIAL IV ONE (09:52)
[2025-06-29] MEDS ORDERED: ROCURONIUM BROMIDE 10 MG/ML 5 ML VIAL IV ONE (09:52)
[2025-06-29] MEDS ORDERED: DEXAMETHASONE SOD INJ 4 MG/ML VIAL ONE (09:54)
[2025-06-29] MEDS ORDERED: ONDANSETRON INJ 2 MG/ML 2 ML VIAL ONE (09:55)
[2025-06-29] MEDS: LACTATED RINGER'S 1,000 ML IV SCH ×2 (11:33→17:19)
[2025-06-29] MEDS ORDERED: ONDANSETRON INJ 2 MG/ML 2 ML VIAL IV PRN (11:37)
[2025-06-29] MEDS ORDERED: ATROPINE SULFATE 0.1 MG/ML 10ML SYR IV PRN (11:37)
--- NOTE | 2025-06-29 11:40 | Anesthesiology Consultation ---
Date of Service June 29, 2025 Assessment & Plan Chart Review Chart Review: Acceptable Risk for Surgery Consults Requested none ASA ASA2 Proposed Anesthesia Anesthesia Type: General Risk / Benefits Reviewed With: PT / POA / Parent / Guardian, Accepts Plan and Informed Consent Obtained History Surgery Operation Date: 06/29/25 11:35 Proposed Procedures p Laparoscopic Cholecystectomy - Jef Nash MD Height/Weight Height: 5 ft Weight: 48.4 kg Allergies Allergy/AdvReac Type Severity Reaction Status Date / Time gluten Allergy Severe CELIAC Verified 06/29/25 11:13 DISEASE latex Allergy Intermediate RED Verified 06/29/25 11:13 IRRITATION OF SKIN wool Allergy Intermediate ITCHY RED Verified 06/29/25 11:13 SKIN lactose AdvReac Intermediate abd pain, Verified 06/29/25 11:14 bloating, diarrhea or constipation SKIN SENSATIVITY Allergy Unknown DETERGENTS, Uncoded 06/29/25 11:13 SOAPS, COSMETICS, ETC. Medications Home Medications Medication Instructions Recorded Confirmed Last Taken calcium carbonate (Calcium 600) 1,200 mg PO DAILY 06/10/25 06/27/25 06/10/25 ketoconazole 2 % shampoo 1 applic topical DIRECTED 06/10/25 06/27/25 Unknown loratadine 10 mg tablet (Claritin) 10 mg PO DAILY 06/10/25 06/27/25 06/10/25 cdjykozukynx-dcletqyr-ipyfnm 1 tab PO DAILY 06/10/25 06/27/25 06/10/25 tablet (Multivitamin 50 Plus tablet) peppermint oil 90 mg 90 mg PO BID 06/10/25 06/27/25 06/10/25 08:00 capsule,delayed,extended release (IBgard) vit C 250 mg-vit E 90 mg-zinc 40 1 tab PO BID 06/10/25 06/27/25 06/10/25 08:00 mg-copper 1 my-ftcrbz-ufberl capsule (PreserVision AREDS-2) ondansetron HCl 4 mg tablet 4 mg PO UD PRN n/v 06/27/25 06/27/25 Unknown Active Medications Generic Name Dose Route Start Last Admin Trade Name Freq PRN Reason Stop Dose Admin Acetaminophen 1,000 mg 06/27/25 18:00 06/29/25 08:40 Acetaminophen 500 Mg Tab PO 07/27/25 17:59 Not Given Q8H SINDY Sodium Chloride 1,000 mls @ 75 mls/hr 06/27/25 14:45 06/29/25 09:06 Nss IV 06/29/25 18:00 75 mls/hr .[id number] SINDY Infusion Piperacillin Sod/Tazobactam Sod 4.5 gm in 100 mls @ 25 mls/hr 06/27/25 20:00 06/29/25 08:37 Zosyn IV 07/07/25 19:59 Infused Q8H SINDY Infusion Protocol Potassium Chloride 10 meq in 100 mls @ 100 mls/hr 06/29/25 09:30 06/29/25 11:34 K Jesus / Wtr IV 06/29/25 12:29 100 mls/hr Q1H SINDY Administration Lactated Ringer's 1,000 mls @ 15 mls/hr 06/29/25 11:30 06/29/25 11:33 Lr IV 07/02/25 11:29 15 mls/hr .Q24H SINDY Administration NPO Date Last Intake of Fluids: 06/28/25 Time Last Intake of Fluids: 20:00 Date Last Intake of Solids: 06/26/25 Time Last Intake of Solids: 19:00 Past Medical History Medical History Choledocholithiasis Celiac disease Exercise / Class Metabolic Activity III < 4 Walking/Shop/Light housework Past Family History Family History Other Celiac disease Past Surgical History Surgical History Hx of tonsillectomy Past Anesthesia History No Hx of Anesthesia Complications and No Family Hx of Anesthesia Complications History of PONV No Hx of PONV and No Hx of Motion Sickness Social History Smoking Status: Never smoker Do You Dip or Chew Tobacco: No Hx Alcohol Use: No Hx Substance Use: No Review of Systems ROS Unobtainable: All systems reviewed & are unremarkable except as noted in HPI & below Constitutional: as per Subjective / HPI Respiratory: no problem reported Cardiovascular: no chest pain, no chest pain with activity, no dyspnea at rest and no problem reported Gastrointestinal: no nausea Neurologic: as per Subjective / HPI; no numbness and no paresthesia Physical Exam Vital Signs Last Vital Signs Temp 36.8 C 06/29/25 11:19 Pulse 97 H 06/29/25 11:19 Resp 57 H 06/29/25 11:19 BP 143/87 H 06/29/25 11:19 Pulse Ox 97 06/29/25 11:19 O2 Del Method Room Air 06/29/25 11:19 Constitutional no acute distress ENMT Mouth: no TMJ abnormality Thyromental Distance: < 3.5 Finger Breadths Mallampati Class: I Neck normal visual inspection Respiratory normal respiratory effort Auscultation: lungs clear to auscultation bilaterally Cardiovascular Rate/Rhythm: regular rate and regular rhythm Chest (Breasts) Chest: no pacemaker Musculoskeletal Spine: normal cervical ROM Neurologic moves all extremities Psychiatric Orientation: alert and oriented x 3 Testing Laboratory Results 06/29/25 08:21 06/29/25 08:21 PT 10.8 Seconds (9.0-12.0) 06/27/25 07:55 INR 1.0 (0.9-1.1) 06/27/25 07:55 Urine Color Yellow 06/27/25 Unknown Urine Appearance Clear (Clear) 06/27/25 Unknown Urine pH 6.5 (4.5-7.5) 06/27/25 Unknown Ur Specific [place] 1.025 (1.000-1.030) 06/27/25 Unknown Urine Protein 1+ (Negative) H 06/27/25 Unknown Urine Glucose (UA) Negative (Negative) 06/27/25 Unknown Urine Ketones 2+ (Negative) H 06/27/25 Unknown Urine Nitrite Negative (Negative) 06/27/25 Unknown Ur Leukocyte Esterase Negative (Negative) 06/27/25 Unknown Urine WBC (Auto) 0-5 /hpf (0-5) 06/27/25 Unknown Urine RBC (Auto) 3-5 /hpf (0-2) H 06/27/25 Unknown U Hyaline Cast (Auto) 0-2 /lpf (0-2) 06/27/25 Unknown U Epithel Cells (Auto) 0-2 /hpf (0-2) 06/27/25 Unknown Urine Bacteria (Auto) None Seen (None Seen) 06/27/25 Unknown
--- NOTE | 2025-06-29 11:43 | History & Physical Bridge Note ---
Date of Service June 29, 2025 History & Physical Bridge Note I have examined the patient, reviewed the History & Physical and in the interval since the performance of the History & Physical I have noted the following changes of clinical significance: no changes noted
[2025-06-29] MEDS ORDERED: HYDROmorphone INJ 2 MG/ML SYR/VIAL ONE (12:38)
[2025-06-29] MEDS: SURGICEL ABSORB HEMOSTAT 2IN X 14IN TOP ONE (12:44)
[2025-06-29] MEDS ORDERED: SUGAMMADEX SODIUM 200 MG/2 ML VIAL IV ONE (12:45)
[2025-06-29] MEDS: THROMBIN FOR SOLN 20000 UNIT KIT ONE (14:04)
[2025-06-29] MEDS: GELATIN SPONGE SZ 100 ONE (14:04)
[2025-06-29] MEDS: FLOSEAL HEMOSTATIC MATRIX 10ML TOP ONE (14:19)
[2025-06-29] MEDS: BUPIVACAINE/EPINEPHRINE 0.5% MPF 1:200,000 30 ML VIAL ONE (14:25)
--- NOTE | 2025-06-29 14:28 | Post Operative Brief Note ---
PG Immediate Post Op with CF Date of Surgery June 29, 2025 Pre & Post Diagnosis Operation Date: 06/29/25 11:35 Pre-Op Diagnosis: CHOLECYSTITIS Post-Op Diagnosis: CHOLECYSTITIS I identified the patient and participated in the time-out.: Yes Procedure Operation Date: 06/29/25 11:35 Actual Procedures p Laparoscopic Cholecystectomy(Not Applicable) - Jef Nash MD Surgeon Jef Nash MD Fountain Manager Chelsi Marie PA-C Estimated Blood Loss 200 Findings Consistent with Post-Op Diagnosis severely inflamed and thickened gallbladder with areas of necrosis and somewhat distorted anatomy with oozing from liver bed Specimens Specimen Description: permanent specimen: A) Gallbladder Drains Graham Drain (19fr) Complications none
--- NOTE | 2025-06-29 15:46 | Anesthesiology Progress Note ---
Date of Service June 29, 2025 Anesthesia Post Procedure Vital Signs Vital Signs: Temp Pulse Pulse Resp BP BP Pulse Ox 06/29/25 15:40 88 13 109/61 97 06/29/25 15:30 89 13 111/76 97 06/29/25 15:20 90 12 123/70 96 06/29/25 15:10 92 H 13 121/66 95 06/29/25 15:00 90 14 123/69 95 06/29/25 14:50 90 17 127/98 95 06/29/25 14:44 36.5 C 89 12 144/73 H 93 06/29/25 11:19 36.8 C 97 H 57 H 143/87 H 97 06/29/25 08:41 06/29/25 08:32 36.5 C 60 18 132/61 94 06/28/25 22:06 36.6 C 74 16 94/60 L 94 06/28/25 17:38 94 H 109/71 06/28/25 17:34 98/62 L 06/28/25 16:44 37.1 C 94 H 18 90/53 L 95 O2 Del Method O2 Flow Rate 06/29/25 15:40 Nasal Cannula 2 06/29/25 15:30 Nasal Cannula 2 06/29/25 15:20 Nasal Cannula 2 06/29/25 15:10 Oxymask 5 06/29/25 15:00 Oxymask 5 06/29/25 14:50 Oxymask 10 06/29/25 14:44 Oxymask 10 06/29/25 11:19 Room Air 06/29/25 08:41 Room Air 06/29/25 08:32 Room Air 06/28/25 22:06 Room Air 06/28/25 17:38 06/28/25 17:34 06/28/25 16:44 Room Air Pain Intensity Bilateral Lower Abdomen: Pain Intensity: 1 Right Abdomen: Pain Intensity: 6 Transfer of Care Handoff Completed per policy Notes Mental Status: alert / awake / arousable Patient Amnestic to Procedure: Yes Nausea / Vomiting: adequately controlled Pain: adequately controlled Airway Patency, RR, SpO2: stable & adequate BP & HR: stable & adequate Hydration State: stable & adequate Anesthetic Complications: no major complications apparent
[2025-06-29 15:52] LABS: Hematocrit (blood only) 36.8 % (37.0-47.0); Hemoglobin 11.6 g/dl (12.0-16.0); Mean Corpuscular Hemoglobin 31.0 pg (25.0-34.0); Mean Corpuscular Volume 98.4 fL (80.0-100.0); Platelet Count 216 K/uL (130-400); RDW Standard Deviation 57.9 fL (36.4-46.3); Red Blood Count 3.74 M/uL (4.20-5.40); White Blood Count 9.61 K/ul (4.8-10.8)
--- NOTE | 2025-06-29 15:55 | Operative Report ---
PG Post Operative Report Pre & Post Diagnosis Operation Date: 06/29/25 11:35 Pre-Op Diagnosis: CHOLECYSTITIS Post-Op Diagnosis: CHOLECYSTITIS I identified the patient and participated in the time-out.: Yes Procedure Operation Date: 06/29/25 11:35 Actual Procedures p Laparoscopic Cholecystectomy(Not Applicable) - Jef Nash MD Surgeon Jef Nash MD Interpreter Deaf Chelsi Marie PA-C Estimated Blood Loss 200 Findings Consistent with Post-Op Diagnosis Severely inflamed and thickened and enlarged gallbladder with stones and purulent fluid and areas of necrosis Specimens Gallbladder with stones Drains 19 Indonesian Graham drain in right upper quadrant Complications None Indications This is an 85-year-old female with a history of symptomatic gallstones as well as choledocholithiasis. She has undergone ERCP with sphincterotomy and stent placement and has had recurrent attacks of cholecystitis and now presents for laparoscopic cholecystectomy, possible open cholecystectomy. Risks of procedure were discussed with the patient and they include bleeding, infection, injury to surrounding structures, need for further procedures, ductal injury, cystic duct stump leak, wound issues to include wound dehiscence, infection, and hernia, and cardiopulmonary events that can occur. Alternatives include no surgery, which the patient declines. Patient wishes to proceed with surgery. All questions were answered. Description of Procedure Informed consent was verified and site of surgery was verified and the patient was brought back to the operating room. General anesthesia was administered. She was in the supine position. Her abdomen was prepped and draped in the usual sterile fashion. A surgical timeout was performed and there were no issues. Next, a left upper quadrant incision was made and a Veress needle was inserted and the abdomen was insufflated to about 15 mmHg. Next, a 30 degree laparoscope was inserted with a 5 mm trocar under direct vision using the Optiview technique and the abdomen was inspected. There was no evidence of any injuries to any structures from anterior to the abdominal cavity. 3 additional 5 mm ports were placed and secured, 1 was below the umbilicus and 2 were in the right upper quadrant. The gallbladder and liver bed were examined, there was green murky and purulent fluid around the gallbladder. It was seen to be extremely enlarged and thickened. It was gently grasped and on grasping it, it did start to drain at some areas of necrosis at its level of fundus and mid gallbladder. Dissection was carried out and laterally along the liver bed as dissection was carried out, there was some areas of oozing at the liver bed. This was controlled with Surgicel as well as pressure and cautery. The cystic duct and c ystic artery were circumferentially dissected but the anatomy actually appeared to be somewhat distorted with a very shortened cystic duct with inflammation. Due to this, decision was made to transect the gallbladder at a safer zone right where the infundibulum can be seen and a window was created there and the laparoscopic KEITH stapler was used to transect the gallbladder at this level. Critical view of safety was obtained with this being the gallbladder and the liver bed behind it and no other structures in between them. The cystic artery was circumferentially dissected and transected after placing hemoclips. The gallbladder was gently dissected off the liver bed using a combination of Bovie electrocautery and the LigaSure device. There was general oozing along the liver bed. The gallbladder was very large and the patient's body habitus made visualization very difficult. There is a large amount of purulence that also was evacuated as the gallbladder was dissected off the liver bed and there were areas of necrosis of the gallbladder. Next, the gallbladder was placed in Endo Catch bag and secured in the liver bed was suctioned and irrigated after upsizing the left upper quadrant port to make it a 12 mm port. Surgicel was placed overlying the liver bed where there was an area of oozing and pressure was applied and hemostatic foam was also placed. There was no evidence of any active bleeding. Suction and irrigation was performed and a 19 Indonesian Graham drain was placed and secured under the liver bed coming out via the right upper quadrant port. The left upper quadrant incision had to be upsized more in order to accommodate removing the gallbladder. The fascia of this port was closed with 0 looped PDS and the skin of this and the other ports were closed with 4 M onocryl after placing local anesthesia. Sterile dressing was applied and the patient was weaned off anesthesia and transferred to recovery in stable condition. She tolerated the procedure well. I attest to the content of the Intraoperative Record and any orders documented therein. Any exceptions are noted below.
--- NOTE | 2025-06-29 16:33 | Procedure Note ---
Procedure Note Date of Service June 29, 2025 Note This is an 85-year-old female who recently underwent laparoscopic cholecystectomy. In the recovery room she has not been able to void. Bladder scan has demonstrated at least 800 mL of urine and nursing staff was unsuccessful with attempts at CIC. Urology was called for assistance. At the bedside, she denies any history of surgery on the bladder or vagina. She denies ever having seen a urologist in the past. She denies any prior issues with emptying her bladder. A Middleton catheter was placed in the following fashion: The patient was prepped and draped in the usual sterile fashion. There was some redundant tissue of the labia majora which made exposure somewhat challenging and she also had some mild vaginal stenosis. Initially it appeared that I could see the urethral meatus, and I attempted to advance a 16 [place] silicone catheter, however there was no immediate return of urine. After discussion with the patient, I then was able to use digital pressure on the anterior vaginal wall and advanced the catheter into the urethral meatus essentially by feel. This advanced smoothly with immediate return of clear yellow urine. The catheter balloon was inflated with 10 mL of sterile water and the catheter was attached to gravity drainage. Patient tolerated the procedure well with no immediate complications. Would agree with continuing antibiotics as she is on Zosyn. With no history of prior urinary retention, would be reasonable to perform voiding trial on 06/30/2025 once she is farther out from anesthesia. Ideally this would be done first thing in the morning. [place] [id number] for difficult catheter placement. Coding
[2025-06-29] MEDS ORDERED: MoRPHine SULFATE 4 MG/ML 1 ML CARP\\VIAL IV PRN (16:57)
[2025-06-29] MEDS: MoRPHine SULFATE 2 MG/ML CARP IV PRN (17:16)
[2025-06-29] MEDS: INDOCYANINE GREEN 25 MG VIAL INJ ONE (18:07)
[2025-06-30] MEDS: POLYETHYLENE (MIRALAX) 17 GM PACK PO PRN (06:26)
[2025-06-30] MEDS: DOCUSATE SODIUM/SENNA 50/8.6MG TAB PO SCH (06:36)
[2025-06-30 07:55] LABS: Hematocrit (blood only) 28.1 % (37.0-47.0); Hemoglobin 9.1 g/dl (12.0-16.0); Mean Corpuscular Hemoglobin 30.8 pg (25.0-34.0); Mean Corpuscular Volume 95.3 fL (80.0-100.0); Platelet Count 191 K/uL (130-400); RDW Standard Deviation 54.9 fL (36.4-46.3); Red Blood Count 2.95 M/uL (4.20-5.40); White Blood Count 8.83 K/ul (4.8-10.8)
[2025-06-30 08:24] LABS: Alanine Aminotransferase 22.0 U/L (7-52); Albumin Globulin Ratio 1.1 (0.9-2); Albumin Level 2.3 gm/dl (3.4-5.0); Alkaline Phosphatase 66.0 U/L (34-104); Anion Gap 6.0 (3-11); Bilirubin,Total 0.8 mg/dl (0.2-1.0); Blood Urea Nitrogen 14.0 mg/dl (6-23); Calcium 7.5 mg/dl (8.6-10.3); Carbon Dioxide 23.0 mmol/L (21-32); Chloride 105.0 mmol/L (98-107); Creatinine Clr Calc Pharmacy 45.2 ml/min; Globulin 2.0 gm/dl (2.5-4.0); Glucose 157.0 mg/dl (70-99(Fasting)); Potassium 3.8 mmol/L (3.5-5.1); Sodium 134.0 mmol/L (136-145); Total Protein 4.3 gm/dl (6.0-8.3)
--- NOTE | 2025-06-30 10:13 | Surgery Progress Note ---
Date of Service June 30, 2025 Assessment & Plan (1) Acute cholecystitis: Plan: Patient is POD#1 s/p laparoscopic cholecystectomy with Dr. Nash -Patient doing well this morning, pain controlled, and tolerating clear liquids -Will plan to advance diet today and see how she does -ESMER drain to remain in place for now, can potentially remove at time of discharge if over the weekend. -Continue IV antibiotics for now, and recommend a total of 5 days of oral Augm entin at time of discharge -Medical management per primary team, surgery will continue to follow Admission and Anticipated Discharge Date Admission Date: June 27, 2025 Subjective Patient seen and evaluated this morning, states she is feeling well post- operatively Tolerating clear liquids without any issues of N/V Pain well controlled WBC 8.8, afebrile, on IV antibiotics. Hgb slightly downtrended from 11.6 to 9.1 however she is not tachycardic or hypotensive and no overt signs of bleeding Physical Exam Constitutional: WD/WN, vitals as above Respiratory: normal respiratory effort, lungs clear to auscultation Cardiovascular: RRR, no murmur, no edema Gastrointestinal (Abdomen): Abdomen soft, nondistended, appropriate TTP over surgical sites. Incisions with Dermabond in place, d/c/i without any signs of infection ESMER drain in place with sanguinous output Skin: no rashes, warm and dry Results & Data Vital Signs (Past 12 Hours) Vital Signs Temp Pulse Resp BP Pulse Ox O2 Del Method 06/30/25 06:57 36.6 C 71 16 110/65 96 Room Air 06/30/25 02:54 36.7 C 73 16 118/71 98 Room Air 06/29/25 22:54 36.8 C 75 16 110/65 92 Room Air PG Care Time/CCT Total # of Minutes Spent Total Time Spent with Patient: Total time spent is greater than 50% in coordination of care (as documented) at patient's floor/unit and/or counseling patient: [place] [address] Post Operative Follow-Up Patient Type New History Problem Focused Exam Problem Focused Medical Decision Making Straight Forward Diagnoses Acute cholecystitis K81.0
--- NOTE | 2025-06-30 14:44 | Hospitalist Progress Note ---
Date of Service June 30, 2025 Assessment & Plan (1) Acute cholecystitis: Plan: Patient is an 85-year-old female with PMH of celiac disease, recent choledocholithiasis and other medical problems listed below who presents from home with abdominal pain. 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 The study is motion degraded and the previously noted choledocholithiasis are not definitively seen on this motion degraded study. No biliary ductal dilation. Small pleural and pericardial effusions with body wall edema and ascites. 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 --Gall Bladder USD:Cholelithiasis with gallbladder distention and gallbladder wall thickening. The findings favor chronic cholecystitis given lack of sonographic Looney sign although acute cholecystitis would be difficult to completely exclude. If indicated, a nuclear medicine hepatobiliary scan could be obtained. No biliary ductal dilatation. --S/p ERCP on 06/12 for choledocholithiasis, s/p biliary stent x 2, pancreatic stent x 1 at [facility] with plans for outpatient gen surg eval for cholecystectomy --S/P laparoscopic cholecystectomy on 06/29/[address]Asna Nash -- Received IV fluids -- Continue IV Zosyn Appreciate surgery input Pain control as needed Monitor CBC Advance diet as tolerated Needs follow-up with surgery on discharge PT OT prior to discharge Urinary retention Continue Middleton catheter for now Voiding trial prior to discharge May need urology evaluation on discharge Hypokalemia Replace and monitor (2) Lactic acidosis: Plan: Lactic acidosis resolved with IV fluids DVT Px: SCDs Code status: DNR/DNI Admission and Anticipated Discharge Date Admission Date: June 27, 2025 Subjective Patient is seen and examined at bedside Patient admits to have some discomfort at surgical site Tolerating liquid diet Denies any nausea, vomiting, chest pain, dyspnea Review of Systems Review of Systems: All systems reviewed & are unremarkable except as noted in Subjective Physical Exam Physical Exam: Physical Exam: Vitals signs as noted above General Appearance: Thin, frail, elderly, no apparent distress Head: normocephalic, Atraumatic Eyes: normal inspection, EOMI Neck: supple, Trachea midline Respiratory/Chest: Normal breath sounds, CTA, No accessory muscle use Cardiovascular: S1, S2, No murmur Abdomen/GI:Soft, laparoscopic surgical scars, mild tender, drain, Bowel sounds present Extremities/Musculoskeletal:normal inspection, no edema Neurologic/Psych:AAOX3, grossly no focal neurological deficits Skin: normal color, warm Results & Data Results & Data Vital Signs (Past 12 Hours) Vital Signs Temp Pulse Resp BP Pulse Ox O2 Del Method 06/30/25 06:57 36.6 C 71 16 110/65 96 Room Air 06/30/25 02:54 36.7 C 73 16 118/71 98 Room Air Laboratory Results Short CBC 06/29/25 06/30/25 Range/Units 15:27 07:27 WBC 9.61 8.83 (4.8-10.8) K/ul Hgb 11.6 L 9.1 L (12.0-16.0) g/dl Hct 36.8 L 28.1 L (37.0-47.0) % Plt Count 216 191 (130-400) K/uL BMP 06/30/25 07:27 Sodium 134 L Potassium 3.8 Chloride 105 Carbon Dioxide 23 BUN 14 Creatinine 0.63 Glucose 157 H Calcium 7.5 L Liver Function 06/30/25 Range/Units 07:27 Total Bilirubin 0.8 (0.2-1.0) mg/dl AST 20 (13-39) U/L ALT 22 (7-52) U/L Alkaline Phosphatase 66 (34-104) U/L Albumin 2.3 L (3.4-5.0) gm/dl
[2025-07-01 08:33] LABS: Hematocrit (blood only) 27.4 % (37.0-47.0); Hemoglobin 8.9 g/dl (12.0-16.0); Mean Corpuscular Hemoglobin 30.4 pg (25.0-34.0); Mean Corpuscular Volume 93.5 fL (80.0-100.0); Platelet Count 199 K/uL (130-400); RDW Standard Deviation 52.2 fL (36.4-46.3); Red Blood Count 2.93 M/uL (4.20-5.40); White Blood Count 8.38 K/ul (4.8-10.8)
[2025-07-01 09:12] LABS: Anion Gap 5.0 (3-11); Calcium 7.8 mg/dl (8.6-10.3); Carbon Dioxide 25.0 mmol/L (21-32); Chloride 108.0 mmol/L (98-107); Potassium 3.5 mmol/L (3.5-5.1); Sodium 138.0 mmol/L (136-145)
[2025-07-01 09:17] LABS: Blood Urea Nitrogen 16.0 mg/dl (6-23); Creatinine Clr Calc Pharmacy 34.7 ml/min; Glucose 101.0 mg/dl (70-99(Fasting))
--- NOTE | 2025-07-01 09:58 | Surgery Progress Note ---
Date of Service July 01, 2025 Assessment & Plan (1) Acute cholecystitis: Plan POD [address] Nash. Afebrile, no leukocytosis. Pt had diarrhea. D/C Middleton catheter today. DTV 8 hours after, straight cath if pt does not void Continue diet as ordered Ambulate Continue ESMER drain. Continue to measure and record outputs. 30mL reported for o/n Dr. Nash recommends continue oral abx course after discharge for total of 5 days Will follow up tomorrow Admission and Anticipated Discharge Date Admission Date: June 27, 2025 Subjective I have seen and examined this patient this am. She denies N/V. States she is tolerating her diet well. Admits to occasional low level post surgical pain expected. Is concerned about excessive loose stooling of which she was incontinent in bed yesterday. Physical Exam Constitutional: not ill appearing, not in distress and not diaphoretic Respiratory: normal respiratory effort; no respiratory distress, no labored breathing and does not use accessory muscles Gastrointestinal (Abdomen): Abdomen is soft ESMER drain in place serosanguinous drainage Laparoscopic incisions intact without evidence for infection Middleton catheter in place Results & Data Vital Signs (Past 12 Hours) Vital Signs Temp Pulse Resp BP BP Pulse Ox O2 Del Method 07/01/25 07:27 36.7 C 86 16 121/76 95 Room Air 06/30/25 23:10 36.8 C 77 16 123/72 95 Room Air PG Care Time/CCT Total # of Minutes Spent Total Time Spent with Patient: Total time spent is greater than 50% in coordination of care (as documented) at patient's floor/unit and/or counseling patient: Coding Level of Care Code 55614 Post Operative Follow-Up Diagnoses Acute cholecystitis K81.0
--- NOTE | 2025-07-01 12:41 | Hospitalist Progress Note ---
Date of Service July 01, 2025 Assessment & Plan (1) Acute cholecystitis: Plan: Patient is an 85-year-old female with PMH of celiac disease, recent choledocholithiasis and other medical problems listed below who presents from home with abdominal pain. 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 The study is motion degraded and the previously noted choledocholithiasis are not definitively seen on this motion degraded study. No biliary ductal dilation. Small pleural and pericardial effusions with body wall edema and ascites. 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 --Gall Bladder USD:Cholelithiasis with gallbladder distention and gallbladder wall thickening. The findings favor chronic cholecystitis given lack of sonographic Looney sign although acute cholecystitis would be difficult to completely exclude. If indicated, a nuclear medicine hepatobiliary scan could be obtained. No biliary ductal dilatation. --S/p ERCP on 06/12 for choledocholithiasis, s/p biliary stent x 2, pancreatic stent x 1 at [facility] with plans for outpatient gen surg eval for cholecystectomy --S/P laparoscopic cholecystectomy on 06/29/[address]Asna Nash -- Received IV fluids -- Continue IV Zosyn Appreciate surgery input Pain control as needed Monitor CBC Tolerating regular diet Needs follow-up with surgery on discharge Plan to transition to oral antibiotics to complete the course as recommended by surgery Urinary retention Middleton catheter discontinued Voiding trial today Bladder scan as needed May need urology evaluation on discharge Hypokalemia Replace and monitor (2) Lactic acidosis: Plan: Lactic acidosis resolved with IV fluids DVT Px: SCDs Code status: DNR/DNI Admission and Anticipated Discharge Date Admission Date: June 27, 2025 Subjective Patient is seen and examined at bedside Abdominal pain better today Tolerating current diet No new complaints Plan for voiding trial today Denies any nausea, vomiting, chest pain, dyspnea Review of Systems Review of Systems: All systems reviewed & are unremarkable except as noted in Subjective Physical Exam Physical Exam: Physical Exam: Vitals signs as noted above General Appearance: Thin, frail, elderly, no apparent distress Head: normocephalic, Atraumatic Eyes: normal inspection, EOMI Neck: supple, Trachea midline Respiratory/Chest: Normal breath sounds, CTA, No accessory muscle use Cardiovascular: S1, S2, No murmur Abdomen/GI:Soft, laparoscopic surgical scars, non tender, drain, Bowel sounds present Extremities/Musculoskeletal:normal inspection, no edema Neurologic/Psych:AAOX3, grossly no focal neurological deficits Skin: normal color, warm Results & Data Results & Data Vital Signs (Past 12 Hours) Vital Signs Temp Pulse Resp BP Pulse Ox O2 Del Method 07/01/25 07:27 36.7 C 86 16 121/76 95 Room Air
[2025-07-02 06:27] LABS: Hematocrit (blood only) 24.1 % (37.0-47.0); Hemoglobin 8.3 g/dl (12.0-16.0)
[2025-07-02 07:17] LABS: Anion Gap 5.0 (3-11); Blood Urea Nitrogen 12.0 mg/dl (6-23); Calcium 7.7 mg/dl (8.6-10.3); Carbon Dioxide 28.0 mmol/L (21-32); Chloride 107.0 mmol/L (98-107); Creatinine Clr Calc Pharmacy 37.5 ml/min; Glucose 93.0 mg/dl (70-99(Fasting)); Potassium 3.4 mmol/L (3.5-5.1); Sodium 140.0 mmol/L (136-145)
[2025-07-02] MEDS: POTASSIUM CHLORIDE CRTAB 20 MEQ TABCR PO ONE (10:21)
--- NOTE | 2025-07-02 10:51 | Surgery Progress Note ---
<Statement entered by Reinier Arredondo DO - 07/02/25 11:28> I have seen and examined this patient with the surgical PA. I agree with this plan Date of Service July 02, 2025 Assessment & Plan (1) Symptomatic cholelithiasis: Plan: POD [address] Nash Hbg 8.3 (8.9). Vitals are stable pain in right upper abdomen, continues w/ ESMER drain in place for now, is serosang in nature tolerating a diet, + bowel functions abx course after discharge for total of 5 days. on zosyn in house encourage ambulation, pulmonary toilet pt lives alone, asking to stay until tomorrow if possible, will have some support from daughter (2) Acute cholecystitis: Admission and Anticipated Discharge Date Admission Date: June 27, 2025 Subjective Patient reports some pain with inspiration under her R rib cage. Otherwise pain tolerable with tylenol. on a diet, no n/v. diarrhea slowing and having some normal BM. she is voiding Physical Exam Physical Exam: awake, alert, no distress Gastrointestinal (Abdomen): Inspection/Auscultation: + abdomen distended (some lower abdominal distention noted) and + abdominal surgical incision P ercussion/Palpation: + abdomen tender (expected post op discomfort) and abdomen soft ESMER drain serosang, 60cc noted Results & Data Vital Signs (Past 12 Hours) Vital Signs Temp Pulse Resp BP BP Pulse Ox O2 Del Method 07/02/25 09:56 Room Air 07/02/25 07:05 98.1 F 68 14 130/91 95 Room Air 07/01/25 23:22 98.1 F 81 16 134/72 95 Room Air PG Care Time/CCT Total # of Minutes Spent Total Time Spent with Patient: Total time spent is greater than 50% in coordination of care (as documented) at patient's floor/unit and/or counseling patient: Coding Level of Care Code 86214 Post Operative Follow-Up Diagnoses Symptomatic cholelithiasis K80.20 Acute cholecystitis K81.0
--- NOTE | 2025-07-02 11:43 | Hospitalist Progress Note ---
Date of Service July 02, 2025 Assessment & Plan (1) Acute cholecystitis: Plan: Patient is an 85-year-old female with PMH of celiac disease, recent choledocholithiasis and other medical problems listed below who presents from home with abdominal pain. 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 The study is motion degraded and the previously noted choledocholithiasis are not definitively seen on this motion degraded study. No biliary ductal dilation. Small pleural and pericardial effusions with body wall edema and ascites. 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 --Gall Bladder USD:Cholelithiasis with gallbladder distention and gallbladder wall thickening. The findings favor chronic cholecystitis given lack of sonographic Looney sign although acute cholecystitis would be difficult to completely exclude. If indicated, a nuclear medicine hepatobiliary scan could be obtained. No biliary ductal dilatation. --S/p ERCP on 06/12 for choledocholithiasis, s/p biliary stent x 2, pancreatic stent x [address] [facility] with plans for outpatient gen surg eval for cholecystectomy --S/P laparoscopic cholecystectomy on 06/29/[address]Asna Nash -- Received IV fluids -- Continue IV Zosyn>> plan to transition to oral antibiotics to complete the course Appreciate surgery input Pain control as needed Monitor CBC Tolerating regular diet Needs follow-up with surgery on discharge Likely discharge home tomorrow Urinary retention-- Middleton catheter discontinued Bladder scan as needed Monitor Hypokalemia Replace and monitor (2) Lactic acidosis: Plan: Lactic acidosis resolved with IV fluids DVT Px: SCDs Code status: DNR/DNI Admission and Anticipated Discharge Date Admission Date: June 27, 2025 Subjective Patient is seen and examined at bedside States having some pleuritic pain with deep inspiration Abdominal pain continues to improve Tolerating current diet Discussed with surgery today Voiding with no issues after Middleton discontinued Denies any nausea, vomiting, chest pain, dyspnea Review of Systems Review of Systems: All systems reviewed & are unremarkable except as noted in Subjective Physical Exam Physical Exam: Physical Exam: Vitals signs as noted above General Appearance: Thin, frail, elderly, no apparent distress Head: normocephalic, Atraumatic Eyes: normal inspection, EOMI Neck: supple, Trachea midline Respiratory/Chest: Normal breath sounds, CTA, No accessory muscle use Cardiovascular: S1, S2, No murmur Abdomen/GI:Soft, laparoscopic surgical scars, non tender, drain, Bowel sounds present Extremities/Musculoskeletal:normal inspection, no edema Neurologic/Psych:AAOX3, grossly no focal neurological deficits Skin: normal color, warm Results & Data Results & Data Vital Signs (Past 12 Hours) Vital Signs Temp Pulse Resp BP Pulse Ox O2 Del Method 07/02/25 09:56 Room Air 07/02/25 07:05 36.7 C 68 14 130/91 95 Room Air Laboratory Results Short CBC 07/02/25 Range/Units 06:10 Hgb 8.3 L (12.0-16.0) g/dl Hct 24.1 L (37.0-47.0) % BMP 07/02/25 06:10 Sodium 140 Potassium 3.4 L Chloride 107 Carbon Dioxide 28 BUN 12 Creatinine 0.76 Glucose 93 Calcium 7.7 L
[2025-07-03 07:29] VITALS: BP 131/72; PULSE 61; RESP 16; TEMP 98.2; O2SAT 96
[2025-07-03 07:42] LABS: Hematocrit (blood only) 26.0 % (37.0-47.0); Hemoglobin 8.7 g/dl (12.0-16.0); Mean Corpuscular Hemoglobin 31.3 pg (25.0-34.0); Mean Corpuscular Volume 93.5 fL (80.0-100.0); Platelet Count 289 K/uL (130-400); RDW Standard Deviation 51.4 fL (36.4-46.3); Red Blood Count 2.78 M/uL (4.20-5.40); White Blood Count 7.70 K/ul (4.8-10.8)
[2025-07-03] MEDS: INFLUENZA VACC TS2025-26(65y+)/PF (IIV3) 0.5mL Syr IM ONE (07:46)
[2025-07-03 08:02] LABS: Anion Gap 5.0 (3-11); Blood Urea Nitrogen 8.0 mg/dl (6-23); Calcium 8.1 mg/dl (8.6-10.3); Carbon Dioxide 28.0 mmol/L (21-32); Chloride 107.0 mmol/L (98-107); Creatinine Clr Calc Pharmacy 41.3 ml/min; Glucose 93.0 mg/dl (70-99(Fasting)); Magnesium 1.9 mg/dl (1.7-2.4); Potassium 3.7 mmol/L (3.5-5.1); Sodium 140.0 mmol/L (136-145)
--- NOTE | 2025-07-03 09:10 | Surgery Progress Note ---
Date of Service July 03, 2025 Assessment & Plan (1) Acute cholecystitis: Plan: Status post laparoscopic cholecystectomy for severe acute cholecystitis with areas of ischemia of the gallbladder. Patient is doing well. Recommend ESMER drain can be removed, stable from surgery standpoint to be discharged to home. Admission and Anticipated Discharge Date Admission Date: June 27, 2025 Subjective Patient without complaints, tolerating oral intake well, ambulating. Review of Systems Review of Systems: All systems reviewed & are unremarkable except as noted in HPI & below Physical Exam Constitutional: WD/WN, vitals as above Respiratory: Normal respiratory effort Cardiovascular: Rate/Rhythm: regular rate Gastrointestinal (Abdomen): Abdomen is soft and nondistended, ESMER drain with serosanguineous fluid Results & Data Vital Signs (Past 12 Hours) Vital Signs Temp Pulse Resp BP BP Pulse Ox O2 Del Method 07/03/25 07:29 36.8 C 61 16 131/72 96 Room Air 07/02/25 23:21 36.9 C 79 18 129/75 98 Room Air PG Care Time/CCT Total # of Minutes Spent Total Time Spent with Patient: Total time spent is greater than 50% in coordination of care (as documented) at patient's floor/unit and/or counseling patient: Coding Level of Care Code 54275 Post Operative Follow-Up Diagnoses Acute cholecystitis K81.0
--- NOTE | 2025-07-03 10:52 | Hospitalist Progress Note ---
Date of Service July 03, 2025 Assessment & Plan (1) Acute cholecystitis: Plan: Patient is an 85-year-old female with PMH of celiac disease, recent choledocholithiasis and other medical problems listed below who presents from home with abdominal pain. 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 The study is motion degraded and the previously noted choledocholithiasis are not definitively seen on this motion degraded study. No biliary ductal dilation. Small pleural and pericardial effusions with body wall edema and ascites. 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 --Gall Bladder USD:Cholelithiasis with gallbladder distention and gallbladder wall thickening. The findings favor chronic cholecystitis given lack of sonographic Looney sign although acute cholecystitis would be difficult to completely exclude. If indicated, a nuclear medicine hepatobiliary scan could be obtained. No biliary ductal dilatation. --S/p ERCP on 06/12 for choledocholithiasis, s/p biliary stent x 2, pancreatic stent x 1 at [facility] with plans for outpatient gen surg eval for cholecystectomy --S/P laparoscopic cholecystectomy on 06/29/[address]Asna Nash -- Received IV fluids -- Continue IV Zosyn>> plan to transition to oral antibiotics to complete the course as recommended by surgery Appreciate surgery input Pain control as needed Monitor CBC Tolerating regular diet Plan to discharge home today Urinary retention--resolved Middleton catheter discontinued Bladder scan as needed Monitor Hypokalemia Replace and monitor (2) Lactic acidosis: Plan: Lactic acidosis resolved with IV fluids DVT Px: SCDs Code status: DNR/DNI Admission and Anticipated Discharge Date Admission Date: June 27, 2025 Subjective Patient is seen and examined at bedside States feeling a lot better today Denies any significant abdominal pain Tolerating current diet Denies any chest pain, dyspnea, nausea, vomiting, dizziness Abdominal pain discontinued today Plan to be discharged home today Review of Systems Review of Systems: All systems reviewed & are unremarkable except as noted in Subjective Physical Exam Physical Exam: Physical Exam: Vitals signs as noted above General Appearance: Thin, frail, elderly, no apparent distress Head: normocephalic, Atraumatic Eyes: normal inspection, EOMI Neck: supple, Trachea midline Respiratory/Chest: Normal breath sounds, CTA, No accessory muscle use Cardiovascular: S1, S2, No murmur Abdomen/GI:Soft, laparoscopic surgical scars, non tender, Bowel sounds present Extremities/Musculoskeletal:normal inspection, no edema Neurologic/Psych:AAOX3, grossly no focal neurological deficits Skin: normal color, warm Results & Data Results & Data Vital Signs (Past 12 Hours) Vital Signs Temp Pulse Resp BP BP Pulse Ox O2 Del Method 07/03/25 07:29 36.8 C 61 16 131/72 96 Room Air 07/02/25 23:21 36.9 C 79 18 129/75 98 Room Air Laboratory Results Short CBC 07/03/25 Range/Units 06:57 WBC 7.70 (4.8-10.8) K/ul Hgb 8.7 L (12.0-16.0) g/dl Hct 26.0 L (37.0-47.0) % Plt Count 289 (130-400) K/uL BMP 07/03/25 06:57 Sodium 140 Potassium 3.7 Chloride 107 Carbon Dioxide 28 BUN 8 Creatinine 0.69 Glucose 93 Calcium 8.1 L
--- NOTE | 2025-07-03 11:10 | Discharge Summary ---
Date of Service July 03, 2025 Admission HPI Per Admitting Provider This is an 85-year-old female with PMH of celiac disease, recent choledocholithiasis and other medical problems listed below who presents from home with abdominal pain. Recently presented to [facility] with findings of chol edocholithiasis and was transferred to [facility] for ERCP. Underwent ERCP on 06/12/2025 with biliary sphincterotomy and balloon extraction, 1 plastic pancreatic stent and 2 plastic biliary stents placed by Dr. Bay. Had scheduled follow-up with general surgery for evaluation of cholecystectomy in outpatient setting. Was feeling okay until last night when she had a cup of brown rice for dinner and after which she developed severe pain across her abdomen with radiation up to chest. Developed nausea, vomiting x 1 and diaphoresis. Took Tylenol but it did not alleviate pain. No diarrhea; chronic d iarrhea at baseline but last bowel movement yesterday. No F/C, lightheadedness, palpitations, SOB, dysuria. Lives alone and ambulates independently. No h/o abdominal surgeries. Admission Exam Per Admitting Provider On exam, General: Elderly woman in no distress Eyes: PERRL, conjunctivae normal, not pale, anicteric sclerae, EOM intact bilaterally ENMT: External ear and nose normal, oropharynx normal Respiratory: Normal respiratory effort, no respiratory distress, lungs clear to auscultation Cardiovascular: RRR S1 S2 Gastrointestinal (Abdomen): Abdomen is not distended, soft, non-tender to palpation, normal bowel sounds Musculoskeletal: No pedal edema Neurologic: Alert and oriented x 3, No focal weakness, sensation grossly intact Psychiatric: Euthymic affect Principal Diagnosis Gangrenous cholecystitis Laparoscopic cholecystectomy Discharge Data Allergies Allergy/AdvReac Type Severity Reaction Status Date / Time gluten Allergy Severe CELIAC Verified 06/29/25 11:13 DISEASE latex Allergy Intermediate RED Verified 06/29/25 11:13 IRRITATION OF SKIN wool Allergy Intermediate ITCHY RED Verified 06/29/25 11:13 SKIN lactose AdvReac Intermediate abd pain, Verified 06/29/25 11:14 bloating, diarrhea or constipation SKIN SENSATIVITY Allergy Unknown DETERGENTS, Uncoded 06/29/25 11:13 SOAPS, COSMETICS, ETC. Consultations 06/27/25 13:37 ED Decision to Admit Stat 06/27/25 14:30 Consult General Surgery Routine Procedures Performed Operation Date: 06/29/25 11:35 Actual Procedures p Laparoscopic Cholecystectomy(Not Applicable) - Jef Nash MD Ordered Studies Laboratory Results WBC 7.70 K/ul (4.8-10.8) 07/03/25 06:57 RBC 2.78 M/uL (4.20-5.40) L 07/03/25 06:57 Hgb 8.7 g/dl (12.0-16.0) L 07/03/25 06:57 Hct 26.0 % (37.0-47.0) L 07/03/25 06:57 MCV 93.5 fL (80.0-100.0) 07/03/25 06:57 MCH 31.3 pg (25.0-34.0) 07/03/25 06:57 MCHC 33.5 g/dL (32.0-36.0) 07/03/25 06:57 RDW Std Deviation 51.4 fL (36.4-46.3) H 07/03/25 06:57 RDW Coeff of Isai 15.0 % (11.5-14.5) H 07/03/25 06:57 Plt Count 289 K/uL (130-400) 07/03/25 06:57 MPV 9.4 fL (9.4-12.4) 07/03/25 06:57 Immature Gran % (Auto) 0.4 % 06/27/25 07:55 Neut % (Auto) 86.8 % 06/27/25 07:55 Lymph % (Auto) 6.6 % 06/27/25 07:55 Twiggs % (Auto) 5.5 % 06/27/25 07:55 Eos % (Auto) 0.0 % 06/27/25 07:55 Baso % (Auto) 0.7 % 06/27/25 07:55 Neut # (Auto) 9.14 K/uL (1.40-6.50) H 06/27/25 07:55 Lymph # (Auto) 0.69 K/uL (1.20-3.40) L 06/27/25 07:55 Twiggs # (Auto) 0.58 K/uL (0.11-0.59) 06/27/25 07:55 Eos # (Auto) 0.00 K/uL (0.00-0.50) 06/27/25 07:55 Baso # (Auto) 0.07 K/uL (0.00-0.20) 06/27/25 07:55 Immature Gran # (Auto) 0.04 K/uL (0.01-0.20) 06/27/25 07:55 Absolute Nucleated RBC 0.04 K/uL (0.00-0.12) 07/03/25 06:57 Nucleated RBC % (auto) 0.5 % 07/03/25 06:57 PT 10.8 Seconds (9.0-12.0) 06/27/25 07:55 INR 1.0 (0.9-1.1) 06/27/25 07:55 Sodium 140 mmol/L (136-145) 07/03/25 06:57 Potassium 3.7 mmol/L (3.5-5.1) 07/03/25 06:57 Chloride 107 mmol/L (98-107) 07/03/25 06:57 Carbon Dioxide 28 mmol/L (21-32) 07/03/25 06:57 Anion Gap 5 (3-11) 07/03/25 06:57 BUN 8 mg/dl (6-23) 07/03/25 06:57 Creatinine 0.69 mg/dl (0.6-1.2) 07/03/25 06:57 Est Cr Clr Drug Dosing 41.3 ml/min 07/03/25 06:57 eGFR 83.94 07/03/25 06:57 BUN/Creatinine Ratio 11.6 (10-20) 07/03/25 06:57 Glucose 93 mg/dl (70-99(Fasting)) 07/03/25 06:57 Lactate 1.8 mmol/L (0.4-2.0) 06/27/25 21:34 Calcium 8.1 mg/dl (8.6-10.3) L 07/03/25 06:57 Magnesium 1.9 mg/dl (1.7-2.4) 07/03/25 06:57 Total Bilirubin 0.8 mg/dl (0.2-1.0) 06/30/25 07:27 Direct Bilirubin 0.3 mg/dl (0-0.2) H 06/28/25 07:53 AST 20 U/L (13-39) 06/30/25 07:27 ALT 22 U/L (7-52) 06/30/25 07:27 Alkaline Phosphatase 66 U/L (34-104) 06/30/25 07:27 Total Protein 4.3 gm/dl (6.0-8.3) L 06/30/25 07:27 Albumin 2.3 gm/dl (3.4-5.0) L 06/30/25 07:27 Globulin 2.0 gm/dl (2.5-4.0) L 06/30/25 07:27 Albumin/Globulin Ratio 1.1 (0.9-2) 06/30/25 07:27 Lipase 10 U/L (11-82) L 06/27/25 07:55 Urine Color Yellow 06/27/25 Unknown Urine Appearance Clear (Clear) 06/27/25 Unknown Urine pH 6.5 (4.5-7.5) 06/27/25 Unknown Ur Specific [place] 1.025 (1.000-1.030) 06/27/25 Unknown Urine Protein 1+ (Negative) H 06/27/25 Unknown Urine Glucose (UA) Negative (Negative) 06/27/25 Unknown Urine Ketones 2+ (Negative) H 06/27/25 Unknown Urine Blood Negative (Negative) 06/27/25 Unknown Urine Nitrite Negative (Negative) 06/27/25 Unknown Urine Bilirubin Negative (Negative) 06/27/25 Unknown Urine Urobilinogen Negative (Negative) 06/27/25 Unknown Ur Leukocyte Esterase Negative (Negative) 06/27/25 Unknown Urine WBC (Auto) 0-5 /hpf (0-5) 06/27/25 Unknown Urine RBC (Auto) 3-5 /hpf (0-2) H 06/27/25 Unknown U Hyaline Cast (Auto) 0-2 /lpf (0-2) 06/27/25 Unknown U Epithel Cells (Auto) 0-2 /hpf (0-2) 06/27/25 Unknown Urine Bacteria (Auto) None Seen (None Seen) 06/27/25 Unknown Urine Comment 06/27/25 Unknown Blood Type A Positive 06/29/25 15:27 Antibody Screen NEGATIVE 06/29/25 15:27 Impressions Gallbladder Ultrasound 06/27/25 07:47 US gallbladder CLINICAL HISTORY: Abdominal pain. Evaluate for acute cholecystitis. COMPARISON STUDY: CT of the abdomen and pelvis and right upper quadrant ultrasound June 10, 2025. FINDINGS: The liver is sonographically normal. There is no biliary ductal dilatation. The common bile duct measures 5 mm in caliber. The gallbladder is mo derately distended. Gallbladder wall thickening is again noted. There are multiple gallstones within the gallbladder. No sonographic Looney sign was elicited. The pancreas is partially obscured. Visualized portions are unremarkable by sonography. There is no right hydronephrosis. IMPRESSION: 1. Cholelithiasis with gallbladder distention and gallbladder wall thickening. The findings favor chronic cholecystitis given lack of sonographic Looney sign although acute cholecystitis would be difficult to completely exclude. If indicated, a nuclear medicine hepatobiliary scan could be obtained. 2. No biliary ductal dilatation. ACT 112: Negative or not required by law. Electronically signed by: Grupo Cazares M.D. 06/27/2025 11:17 AM Cholangiopancreatography MRI 06/28/25 10:18 MR MRCP HISTORY: 85 years-old Female elevated bilirubin, history of ERCP and stent COMPARISON: CT abdomen and pelvis 06/10/2025 TECHNIQUE: MRCP was obtained without IV contrast FINDINGS: Levoscoliosis of the thoracolumbar junction. Trace pleural effusions with mild bibasilar atelectasis. Cardiomegaly with small pericardial effusion. Unremarkable spleen and visualized adrenal glands. Bilateral perinephric stranding without hydronephrosis. Unremarkable aorta. Aortic lymph nodes measure up to 10 mm. No definite bowel stroke shown small bowel wall thickening. Small volume of ascites. Liver is within normal limits. Distended gallbladder measures up to approximately 17 cm and demonstrates wall thickening with pericholecystic fluid and numerous intraluminal gallstones including a 2.2 cm stone within the gallbladder neck. The common bile duct measures 5 mm transversely. Previously noted choledocholithiasis not definitively seen on this study. 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 No pancreatic ductal dilation identified. IMPRESSION: 1. Cholelithiasis with findings suggestive of cholecystitis redemonstrated. 2. The study is motion degraded and the previously noted choledocholithiasis are not definitively seen on this motion degraded study. No biliary ductal dilation. 3. Small pleural and pericardial effusions with body wall edema and ascites. 4. 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 ACT 112: Negative or not required by law. The above report was generated using voice recognition software. It may contain grammatical, syntax or spelling errors. Electronically signed by: Mark Lizarraga M.D. 06/28/2025 2:57 PM Hospital Course (1) Acute cholecystitis: Patient is an 85-year-old female with PMH of celiac disease, recent choledocholithiasis and other medical problems listed below who presents from home with abdominal pain. 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 The study is motion degraded and the previously noted choledocholithiasis are not definitively seen on this motion degraded study. No biliary ductal dilation. Small pleural and pericardial effusions with body wall edema and ascites. 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 --Gall Bladder USD:Cholelithiasis with gallbladder distention and gallbladder wall thickening. The findings favor chronic cholecystitis given lack of sonographic Looney sign although acute cholecystitis would be difficult to completely exclude. If indicated, a nuclear medicine hepatobiliary scan could be obtained. No biliary ductal dilatation. --S/p ERCP on 06/12 for choledocholithiasis, s/p biliary stent x 2, pancreatic stent x 1 at [facility] with plans for outpatient gen surg eval for cholecystectomy --S/P laparoscopic cholecystectomy on 06/29/[address]Asna Nash -- Received IV fluids -- Continue IV Zosyn>> plan to transition to oral antibiotics to complete the course as recommended by surgery Appreciate surgery input Pain control as needed Monitor CBC Tolerating regular diet Plan to discharge home today Urinary retention--resolved Middleton catheter discontinued Bladder scan as needed Monitor Hypokalemia Replace and monitor (2) Lactic acidosis: Lactic acidosis resolved with IV fluids DVT Px: SCDs Code status: DNR/DNI Total Time Total Time Spent Total Time Spent (In Minutes): 39 minutes Discharge Plan Discharge Items Patient Disposition: Home - Self-Care Reason For Visit: CHOLCEYSTITIS Discharge Diagnosis: Gangrenous cholecystitis laparoscopic cholecystectomy Condition on Discharge: Fair Activity: Per Instructions section Lifting: No more than 10 pounds Bathing Comment: may shower starting 06/30; no soaking in tubs/pools x 2 weeks Exercise/Sports: Wait until after follow-up appointment Driving/Machine Use: no driving while taking narcotics for pain Non-emergency contact: Primary Care Provider and Surgeon Call non-emergency contact if: you have any medication questions, your symptoms worsen, your pain is not controlled, your pain is worsening, you have a fever, your temperature is above 101.5, your wound has increased redness, your wound has increased drainage and your wound pain has increased Follow-up/Referrals: Dilcia Faye DO [Primary Care Provider] - 07/10/25 11:20 am (Date & Time 07/10/2025 11:20 AM Provider: Dilcia Faye DO [facility] ) Jef Nash MD [Surgeon] - 07/12/25 10:30 am (please call to schedule follow up in the office in 2 weeks) Diet: Regular Addtl Attending Provider Instructions: SPECIAL CARE INSTRUCTIONS: * You have skin glue over your incisions called dermabond. you may shower with this on. It will tend to dissolve and fall off within a couple weeks. Do not pick at the skin glue * You may shower . NO soaking in pools or baths for 2 weeks * No lifting greater than 10lbs. No strenuous exercise until cleared by surgeon. Light walking is accepted. * No driving while taking narcotic pain medication; wait at least 3 days * No drinking alcohol while taking narcotic pain medication * May use Ibuprofen/Tylenol over the counter for pain as tolerated. Do not exceed 3grams of Tylenol per 24 hours * Expect some swelling and bruising. * Diet- you may resume your regular diet Call your doctor if: * Temperature above 101 degrees, nausea/vomiting, fever/chills * Pain not relieved by pain medicine ordered * There is increased drainage or redness from any incision * You have any unanswered questions or concerns [phone]. FOLLOW UP VISIT: If not already scheduled, please call the office for a follow-up visit. Office Addtl [facility] Provider Instructions: -- Follow-up with your primary care physician on 07/04/2025 3:00 PM -- Follow up with your surgeon in 2 weeks as scheduled -- Complete the antibiotic course Augmentin for 2 more days as prescribed. Seek immediate medical attention if your symptoms reoccur or worsen Please review medication list provided on discharge for any medication changes a s instructed. Please call if you have any questions or problems. You can reach a [facility] hospitalist on duty at [facility] 24 hours a day by calling [phone] Pending Studies at Discharge: No Stand-Alone Forms: My [facility], Smoking Cessation Medications and DC Order Prescriptions: New polyethylene glycol 3350 [Miralax] 17 gram Powder In Packet 17 g PO DAILY PRN (Reason: constipation) Qty: 14 0RF amoxicillin-pot clavulanate 875-125 mg Tablet 1 tab PO BID Qty: 4 0RF oxycodone 5 mg Tablet 5 mg PO Q4H PRN (Reason: pain) Qty: 10 0RF Continued ketoconazole 2 % shampoo 1 applic TOPICAL DIRECTED calcium carbonate [Calcium 600] 600 mg calcium (1,500 mg) Tablet 1,200 mg PO DAILY loratadine [Claritin] 10 mg Tablet 10 mg PO DAILY Multivitamin 50 Plus Tablet 1 tab PO DAILY PreserVision AREDS-2 250-90-40-1 mg Capsule 1 tab PO BID IBgard 90 mg Capsule,Delayed,Extend.Release 90 mg PO BID ondansetron HCl 4 mg tablet 4 mg PO UD PRN (Reason: n/v) Discharge Orders: Discharge Order (Routine); Ordered 07/03/25 Ordered By: Shaun Sweeney Admission Data Admit Date/Time: 06/27/25 13:57 Attending Provider: Shaun Sweeney Admit Provider: Medina Collins I. Primary Care Provider: Dilcia Faye Other Providers: Jayro Abdalla; Medina Collins I.; Jef Nash
[2025-07-03] MEDS: AMOXICILLIN/CLAVULANATE 875 MG TAB PO SCH (11:17)
== END 2025-07-03 12:13 | disposition home or self-care (01) | DRG 418 ==
LOC: ED 07:34 → SUATTDRO 13:57 → 3N 13:57